=== PATIENT | female | born 1955 | race Caucasian/White ===

== ENCOUNTER → 2018-05-10 07:46 | Outpatient (CLI) | payer SELFPAY ==
--- NOTE | 2018-05-10 | DI.US.S_ITS ---
PROCEDURE: US ABDOMEN COMPLETE INDICATIONS: Right upper quadrant pain TECHNIQUE: Real-time scanning was performed of the abdominal and retroperitoneal organs, with image documentation. COMPARISON: None. FINDINGS: Liver: Liver is normal in size and homogeneous in echotexture. Gallbladder: There is no gallstone. No gallbladder wall thickening or pericholecystic fluid. No sonographic Friend's sign. Biliary ducts: Intrahepatic bile ducts are non-dilated. Extrahepatic bile duct caliber measures 4 mm. Normal is 6-7 mm or less in diameter, or 10 mm or less post-cholecystectomy. Pancreas: Visualized portions of the pancreas are sonographically normal. Spleen: Spleen is normal in size and homogeneous in echotexture. Kidneys: Kidneys are normal in size and echotexture. Right kidney measures 9.2 cm long; left kidney measures 11 cm long. There is mild prominence of left renal collecting system which may represent mild left-sided hydronephrosis. No shadowing renal stone is seen. No right sided hydronephrosis. No solid masses. Aorta: Visualized aorta is normal in caliber at less than 3 cm. Iliacs: Proximal common iliac arteries are normal in caliber at less than 2.5 cm. IVC: Intrahepatic inferior vena cava is patent. Miscellaneous: No free abdominal fluid. IMPRESSION: 1. Suggestion of mild left-sided hydronephrosis although patient reported no symptoms of left flank pain. No right-sided hydronephrosis. No gross shadowing renal stone. 2. Rest of exam is unremarkable. Dictated by: Leonid Ashby M.D. on 05/10/2018 at 11:54 Approved by: Leonid Ashby M.D. on 05/10/2018 at 11:57
== END ==
PROVIDERS: Visit Provider Naturopath
DX: R10.11 Right upper quadrant pain (principal)
CPT/HCPCS: 76700

== ENCOUNTER → 2018-10-20 14:32 | Outpatient (CLI) | payer MEDICARE, OTHER, SELFPAY ==
--- NOTE | 2018-10-20 14:38 | DI.MG.S_ITS ---
BILATERAL DIGITAL SCREENING MAMMOGRAM 3D/2D WITH CAD: 10/20/2018 CLINICAL: Routine screening. Family history of breast cancer. Comparison is made to exams dated: [facility]/01[facility]2010 [facility] and 06/01/2010 mammogram - [facility]. The tissue of both breasts is heterogeneously dense. This may lower the sensitivity of mammography. Current study was also evaluated with a Computer Aided Detection (CAD) system. There are benign calcifications in both breasts. No significant masses, calcifications, or other findings are seen in either breast. There has been no significant interval change. IMPRESSION: There is no mammographic evidence of malignancy. A 1 year screening mammogram is recommended. This exam was interpreted at Station ID: [id number]. NOTE: For mammograms, a report in lay terms will be sent to the patient. Approximately 15% of breast malignancies will not be visualized mammographically. In the management of a palpable breast mass, a negative mammogram must not discourage biopsy of a clinically suspicious lesion. Electronically Signed By: Moses bauman/pancho:10/27/2018 08:10:34 letter sent: Normal Exam ACR BI-RADS Category 2: Benign Finding(s) [id number]
== END ==
PROVIDERS: Family Provider Family Medicine; PCP Family Medicine; Visit Provider Family Medicine
DX: Z12.31 Encounter for screening mammogram for malignant neoplasm of breast (principal); Z80.3 Family history of malignant neoplasm of breast; M85.88 Other specified disorders of bone density and structure, other site; Z78.0 Asymptomatic menopausal state; Z82.62 Family history of osteoporosis; Z87.891 Personal history of nicotine dependence
CPT/HCPCS: 77063; 77067; 77080

== ENCOUNTER → 2018-11-27 07:30 | Outpatient (CLI) | payer MEDICARE, OTHER, SELFPAY ==
--- NOTE | 2018-11-27 | DI.MRI.S_ITS ---
PROCEDURE: MR BRAIN (IAC) WWO CON INDICATIONS: DIZZINESS TECHNIQUE: Noncontrast sagittal T1 spin echo, axial FLAIR, axial gradient echo, axial diffusion and ADC through the brain. Axial thin-slice 3D CISS, coronal TruFISP, axial T1 spin echo with fat saturation through the internal auditory canals. After the administration of contrast, thin slice axial and coronal T1 spin echo with fat saturation through the internal auditory canals, and axial T1 spin echo with fat saturation through the brain. COMPARISON: None. FINDINGS: Image quality: Excellent. Cerebellopontine angles: No cerebellopontine angle masses. Inner ear structures appear normally formed. No suspicious enhancement in the internal auditory canal or along the course of the 7th cranial nerve. CSF spaces: Ventricles are normal in size and shape. No extra-axial fluid collections. Basal cisterns are patent. Brain: No intracranial bleeds or mass effects. Faustin-white matter interface is intact. No abnormal intracranial enhancement. Mild brain parenchymal volume loss and chronic small vessel ischemic change can be seen. Diffusion weighted images demonstrate no acute ischemic insults. Brainstem appears normal. Normal intravascular flow voids are present. Skull and face: Calvarial marrow signal is normal. Orbits appear normal. Sinuses: Sinuses and mastoids are clear. IMPRESSION: No significant abnormality is seen. Specifically, no masses or abnormal enhancement are seen within the cerebellopontine angle cisterns or within the internal auditory canals. No findings of acute or subacute infarction can be seen. Dictated by: Nadeem Olmstead M.D. on 11/27/2018 at 8:58 Approved by: Nadeem Olmstead M.D. on 11/27/2018 at 9:00
== END ==
PROVIDERS: PCP Family Medicine; Visit Provider Otolaryngology
DX: R42 Dizziness and giddiness (principal)
CPT/HCPCS: 70553

== ENCOUNTER → 2019-01-30 12:55 | Outpatient (CLI) | payer MEDICARE, OTHER, SELFPAY ==
--- NOTE | 2019-01-30 12:58 | DI.RAD.S_ITS ---
PROCEDURE: XR HIP W PEL IF DONE RT 2V INDICATIONS: Right hip pain TECHNIQUE: AP pelvis with lateral view(s) of the right hip(s). COMPARISON: Outside Facility, RG, XR PELVIS WITH BILATERAL HIPS, 04/17/2014, 15:36. FINDINGS: Bones: No fractures or dislocations. Pelvic ring appears intact. No suspicious bony lesions. There is mild symmetric hip and sacroiliac joint degeneration bilaterally. Soft tissues: The visualized bowel gas pattern is normal. No suspicious soft tissue calcifications. 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 Dictated by: Shari Hayes M.D. on 01/30/2019 at 17:03 Approved by: Shari Hayes M.D. on 01/30/2019 at 17:08
== END ==
PROVIDERS: PCP Family Medicine; Visit Provider Hospitalist
DX: M16.0 Bilateral primary osteoarthritis of hip (principal); M47.898 Other spondylosis, sacral and sacrococcygeal region
CPT/HCPCS: 73502

== ENCOUNTER → 2019-02-26 15:06 | Outpatient (CLI) | payer MEDICARE, OTHER, SELFPAY ==
--- NOTE | 2019-02-26 15:39 | DI.RAD.S_ITS ---
PROCEDURE: XR ACUTE ABDOMEN SERIES INDICATIONS: abd pain, diarrhea, nausea, bloating and fatigue TECHNIQUE: One view chest and two views of the abdomen were acquired. COMPARISON: None. FINDINGS: Surgical changes and devices: None. Chest: Lungs are clear. No pneumothorax is evident. There is aortic atherosclerosis. Heart size is normal. No pleural effusions. No pneumoperitoneum. Abdomen: No air-filled distended small bowel loops are identified demonstrating air-fluid levels. Moderate residual stool seen within the proximal colon. No suspicious calcifications. Visualized solid organ contours appear normal. No free air is evident. Bones: No suspicious bony lesions. Levoconvex curvature of the lumbar spine is evident with moderate multilevel degenerative changes of the lower lumbar spine. There are mild degenerative changes of the sacral iliac joints. The bone mineralization is decreased. IMPRESSION: 1. No bowel obstruction. 2. No acute cardiopulmonary process is evident Dictated by: Arias Fritz M.D. on 02/26/2019 at 15:15 Approved by: Arias Fritz M.D. on 02/26/2019 at 15:16
== END ==
PROVIDERS: PCP Family Medicine; Visit Provider Nurse Practitioner
DX: R10.9 Unspecified abdominal pain (principal); R19.7 Diarrhea, unspecified; R11.0 Nausea; R14.0 Abdominal distension (gaseous); R53.83 Other fatigue
CPT/HCPCS: 74022

== ENCOUNTER → 2019-02-27 13:51 | Outpatient (CLI) | payer MEDICARE, OTHER, SELFPAY ==
--- NOTE | 2019-02-27 13:54 | DI.CT.S_ITS ---
PROCEDURE: CT ABDOMEN PELVIS W CON INDICATIONS: r/o diverticulitis TECHNIQUE: After the administration of intravenous contrast, 5 mm thick sections acquired from the diaphragm to the symphysis. 5 mm coronal and sagittal reformats were acquired. For radiation dose reduction, the following was used: automated exposure control, adjustment of mA and/or kV according to patient size. COMPARISON: [facility], CR, XR ACUTE ABDOMEN SERIES, 02/26/2019, 15:50. FINDINGS: Image quality: Excellent. ABDOMEN: Lung bases: Lung bases are clear. Heart size is normal. Solid organs: Liver is normal in size and enhancement. Gallbladder is not enlarged or inflamed. Biliary system is non dilated. Pancreas enhances normally. Spleen is normal in size and enhancement. No adrenal nodules. Kidneys demonstrate normal size and enhancement, without hydronephrosis. Parapelvic cysts are evident on the left. Peritoneum and bowel: The stomach is unremarkable with the exception of prominence of the wall near the antrum of the stomach. The small bowel loops are nondilated. Mild to moderate residual stool is seen throughout the colon. Distal colonic diverticulosis is evident without surrounding inflammation to suggest diverticulitis. No free fluid or loculated fluid collection is evident. No pneumoperitoneum. Nodes and vessels: No retroperitoneal or mesenteric adenopathy by size criteria. Aorta and inferior vena cava are normal in size. There is aortic atherosclerosis. Bones: No acute fracture suspicious osseous lesion is evident. The bone mineralization appears decreased. PELVIS: Genitourinary: Bladder wall thickness is normal. The uterus and ovaries are small in size. Miscellaneous: No inguinal hernias or adenopathy. Bones: No suspicious bony lesions. No acute pelvic fractures are identified. IMPRESSION: 1. No acute abnormality of the abdomen or pelvis. 2. Nonspecific prominence of the antrum of the stomach. Clinical correlation to exclude focal gastritis is recommended. 3. No bowel obstruction. There may be mild constipation. 4. Distal colonic diverticulosis. No diverticulitis. Dictated by: Arias Fritz M.D. on 02/27/2019 at 15:16 Approved by: Arias Fritz M.D. on 02/27/2019 at 15:21
[2019-02-27 14:58] LABS: BUN Creatinine Ratio 24.4 (6-22); Blood Urea Nitrogen 22 mg/dL (7-17); Estimated Glomerular Filt Rate > 60.0 mL/min (>60)
== END ==
PROVIDERS: PCP Family Medicine; Visit Provider Nurse Practitioner
DX: R10.9 Unspecified abdominal pain (principal)
CPT/HCPCS: 36415; 74177; 82565; 84520; Q9967

== ENCOUNTER → 2019-03-20 13:00 | Oncology outpatient (ONC) | payer MEDICARE, OTHER, SELFPAY ==
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
--- NOTE | 2019-03-27 10:47 | MSW.VISIT ---
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 Narrative: Alda Madrigal is a 63 year old female here to continue counseling as she mateo with her 's recent cancer diagnosis and impending treatment. She presents as more tired and fatigued than she had our last visit. She feels that the waiting is wearing on both her and her , as he is still completing staging testing and doesn't yet know what his cancer treatment will be, or if he will only require surgery. Continued the focus of self care, how to take time away from their current routine in order to engage in meaningful activities for herself, even if it's just going out for a walk. She feels that her anxiety has worsened, and than this just has to be over with, re: the uncertainty of what lies ahead. Due to multiple health issues of her own, pt has many limitations re: activities and therapeutic modalities that could help her, she is not open to massage or accupuncture, and doesn't want to explore diet or possibly meeting with a life teacher to address her chronic fatigue. FOOT AND ANKLE SURGEON continued to support her goals of being primarily future focused, and suggested utilizing deep breathing and quiet meditative time as tools for calming and centering during times of anxiousness. CC: DEJAN Perry Patient reports pain?: No - Code Status Resuscitation Status: Full Code - Medical, Surgical, Family History Medical History: Medical History (Updated 03/15/19 @ 13:47 by DEJAN Perry) Anxiety Carpal tunnel syndrome Onset Date: ~1995 Cervical spine disease Onset Date: ~2010 Chronic gastritis Colon polyps Onset Date: ~2010 [place] of foot Dyspareunia Esophagitis Onset Date: ~2010 Foot pain Headache Hemorrhoid Irregular menstrual cycle Osteoarthritis Osteopenia Onset Date: ~2013 Painful menstrual periods Post traumatic stress disorder (PTSD) Shoulder pain Onset Date: ~2009 Sleep apnea Onset Date: ~2014 Abnormal Pap smear of cervix Onset Date: ~1977 BPPV (benign paroxysmal positional vertigo) Onset Date: ~10/2018 Broken toe Onset Date: ~2011 Chicken pox Coagulation disorder Onset Date: ~1978 Eczema Onset Date: ~2017 Human papilloma virus Onset Date: ~1995 Measles Mumps Pneumonia Vertigo Onset Date: ~01/2018 Depression Surgical History: Surgical History (Updated 11/15/18 @ 11:38 by Roya Wilkins MA) Anesthesia History of cataract removal with insertion of prosthetic lens Onset Date: ~2016 History of section Onset Date: ~1978 History of laparotomy Onset Date: ~1975 History of tonsillectomy and adenoidectomy Onset Date: ~1959 Thyroglossal cyst Onset Date: ~1958 Family History: Family History (Updated 11/15/18 @ 11:52 by Roya Wilkins MA) Father Cancer Diabetes mellitus Heart disease Hypertension Alcoholic Mother Hypertension Alcoholic COPD (chronic obstructive pulmonary disease) Brother Heart disease Hypertension Stroke Gastritis Sleep apnea Sister Breast cancer Grandfather Hypertension Alcoholic Gastritis Grandfather No problems noted. Daughter History of thyroidectomy Grandmother Medical history unknown Grandmother Cerebral hemorrhage - Social History housing: house household members: spouse service: No current occupational status: retired education level: college - Psychological Status Stressors: Psychosocial, Health Depression-related: Depressed mood: Present, Loss of interest: Present, Fatigue: Present, Concentration/focus: Present, Insomnia: Present, Hypersomnia: Absent, Appetite changes: Absent, Feel guilt/worthlesness: Absent, Suicidal ideation: Absent, Psychomotor agitation: Absent, Psychomotor retardation: Absent - Mental Status Exam Orientation:: Time, Place and Person Appearance:: Well-groomed Speech:: Normal rate/volume/magdalena Movement:: Agitated Mood:: Anxious Affect:: Anxious Thought Process:: Goal-directed Thought Content:: Normal - Assessment/Goals/Plan Assessment: Pt and her have their next oncology appointments at the end of February and on April 03, both of which will determine the next steps in pt's 's course of cancer treatment. FOOT AND ANKLE SURGEON encouraged tools for caregiver self-care and coping, as well as validation for the hard work of providing care for her , and the frustrations of waiting for treatment to begin. Pt understands that this heightened level of anxiousness is situational, and will decrease as they move forward in pt's cancer journey. Goals: 1. Continue to explore he angeln communication and coping style in managing the high stress of her 's cancer diagnosis and their future as a couple. 2. Learn and utilize CBT related skills in order to improve her own expectations and narrative in her own life. Begin to set goals for how she see's her life in the next 5-years, including options. 3. Begin to utilize her own ingerent strengths of art, writing, creativity and spirituality in order to improve quality of life. Plan: Meet again for counseling after pt's March oncology appt. for ongoing support and skills training in accomplishing goals and improving understanding her role as a cancer caregiver. Home Medications: Home Medications Medication Instructions Recorded Confirmed Type potassium 99 mg tablet 99 mg PO DAILY 01/30/19 01/30/19 History see scans from 02/22/19 #1 ea 02/22/19 02/22/19 Rx acetaminophen 500 mg capsule 500 mg PO Q6H PRN 02/26/19 02/26/19 History omeprazole 20 mg capsule,delayed 20 mg PO DAILY #30 cap 03/02/19 Rx release Allergies/Adverse Reactions: Allergies Allergy/AdvReac Type Severity Reaction Status Date / Time adhesive Allergy Severe Took layer Verified 02/26/19 14:40 of skin off
== END ==
PROVIDERS: PCP Family Medicine; Visit Provider Social Worker Clinical
DX: F41.1 Generalized anxiety disorder (principal)
CPT/HCPCS: 90837

== ENCOUNTER → 2019-03-28 11:51 | Outpatient (CLI) | payer MEDICARE, OTHER, SELFPAY | PROVIDERS: PCP Family Medicine; Visit Provider Family Medicine | DX: L29.0 Pruritus ani (principal) | CPT/HCPCS: 87177 ==

== ENCOUNTER → 2019-03-29 16:02 | Outpatient (CLI) | payer MEDICARE, OTHER, SELFPAY | PROVIDERS: PCP Family Medicine; Visit Provider Family Medicine | DX: L29.0 Pruritus ani (principal) | CPT/HCPCS: 87177 ==

== ENCOUNTER 2020-07-08 13:45 | Outpatient (RCR) | payer MEDICARE, OTHER, SELFPAY ==
--- NOTE | 2020-06-17 14:34 | PT.OPPOC ---
Physical, Occupational & Speech Therapy At [facility] Current Diagnoses Other forms of scoliosis, thoracolumbar region (06/17/20) Sacrococcygeal disorders, not elsewhere classified (06/17/20) Abnormal posture (06/17/20) Weakness (06/17/20) Strain of muscle, fascia and tendon at neck level, initial encounter (06/17/20) Visit Care Team Role Provider Type Brendan Cesar Attending Provider Non-Staff Primary Care Provider Referring Provider Specialty: Family Practice Address: [address] [place] [address], [id number] Email: Plan Of Care PT-OP-T Assessment and Plan Start: 06/17/20 12:52 Freq: Status: Active Protocol: Document 06/17/20 14:34 SAK (Rec: 06/18/20 10:30 SAK [id number]) Physical Therapy Assessment Evaluation Complexity Number of Personal Factors/Comorbidities 3 or More Number of Body Systems Impaired 4 or More Clinical Presentation at Evaluation Evolving Other Concerns Barriers to Rehabilitation chronicity high stress level prior poor respnse to PT Goals Three Impairment postural dysfunction Short Term Goal (STG) Instruct in neutral postural alignment, instruct in gentle postural correction exercises STG Duration 08/04/20 Jail Goal (LTG) Patient to demonstrate good understanding of postural principles, be independent in postural correction exercises, and be able to self-correct consistently LTG Duration 09/18/19 Two Impairment unable to tolerate exercises Short Term Goal (STG) Work with patient to evelop well-tolerated self-care program consisting of relaxation techniques, breathing exercises, and gentle ROM and strengthening exercises for patient STG Duration 08/04/20 Jail Goal (LTG) Patient to be independent and compliant with HEP for long- term fitness and pain management LTG Duration 09/16/20 One Impairment intolerance to activity, unable to tolerate usual activities Jail Goal (LTG) Patient to report ability to resume light household tasks, ADL's, and 10-15 min walks without an increase in pain LTG Duration 09/16/20 Assessment Summary Assessment Patient presents with function -limiting chronic pain throughout her body especially neck, thoracic, and lumbar spine, left shoulder, and bilateral feet. States her pain has worsened recently for unknown reason. Patient acknowledges emotional component to her pain and also reports her stress level is william high. She has prior poor response to most PT, but states she responds well to OMT and visceral mobilization. She requests a gentle PT approach due to her prior bad experiences. Majority of today's session was spent on patient history, patient has low tolerance for objective testing. She should benefit from PT for pain reduction techniques to include gentle soft tissue mobilization, modalities, breathing and stress reduction techniques and education, neuroscience pain education, and gentle therapeutic exercise and HEP instruction. Physical Therapy Plan Frequency and Duration Frequency of Treatment 2x/Week Duration of Treatment 12 weeks Plan of Care Start Date 06/18/20 Plan of Care End Date 09/16/20 Therapeutic Interventions Therapeutic Interventions Balance Training,Home Exercise Program,Manual Therapy, Neuromuscular Re-education, Patient/Caregiver Education, Self-Care/Home Management,Soft Tissue Mobilization,Taping, Therapeutic Activities, Therapeutic Exercises Modalities Electric Stimulation,Hot Packs ,Traction- Mechanical, Ultrasound Next Visit Focus/Plan Next Note Type Treatment Note Plan of Care Dates Plan of Care Start Date 06/18/20 Plan of Care End Date 09/16/20 Electronically Signed by: Brooke Cheng, PT 06/18/20 [id number] Please Sign and Return: I have reviewed this Plan of Care and certify that the skilled therapy services above are required to meet the patient?s needs. Physician Signature Date Printed Name and Credentials Clinical Instructor Signature Printed Name and Credentials
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
--- NOTE | 2020-07-14 14:45 | PT-OP ANOTE ---
Patient cancelled due to Covid19 exposure, no symptoms, self-quarantining.
--- NOTE | 2020-07-29 08:15 | PT-OP ANOTE ---
cancelled until after the first of the year due to Covid19 concerns.
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
== END 2021-01-02 09:06 | disposition home or self-care (01) ==
LOC: PHYS 13:45
PROVIDERS: PCP Neuromusculoskeletal Medicine & OMM; Referring Provider Neuromusculoskeletal Medicine & OMM; Visit Provider Neuromusculoskeletal Medicine & OMM
DX: S16.1XXA Strain of muscle, fascia and tendon at neck level, initial encounter (principal); M41.85 Other forms of scoliosis, thoracolumbar region; M53.3 Sacrococcygeal disorders, not elsewhere classified; R29.3 Abnormal posture; R53.1 Weakness
CPT/HCPCS: 97010; 97110; 97140; 97163; 97535

== ENCOUNTER → 2020-10-29 07:48 | Outpatient (CLI) | payer MEDICARE, OTHER, SELFPAY ==
[2020-10-29 09:16] LABS: Add Manual Diff / Slide Review NO; Basophils Absolute Auto 0 /uL (0-100); Basophils Percent Auto 0.4 % (0-2); Eosinophils Absolute Auto 0 /uL (0-450); Eosinophils Percent Auto 1.1 % (2-4); Hematocrit 37.9 % (36-46); Hemoglobin 12.5 g/dL (12.0-16.0); Lymphocytes Absolute Auto 1000 /uL (1100-4500); Lymphocytes Percent Auto 24.2 % (25-40); Mean Corpuscular HGB Conc 32.9 % (30-36); Mean Corpuscular Hemoglobin 31.9 PG (26-34); Mean Corpuscular Volume 96.7 fL (80-100); Monocytes Absolute Auto 300 /uL (0-900); Neutrophils Absolute Auto 2700 /uL (1500-7000); Neutrophils Percent Auto 67.3 % (50-75); Platelet Count 197 X10^3/uL (150-400); Red Blood Cell Count 3.92 X10^6/uL (4.0-5.2); Red Cell Distribution Width 12.8 % (11.6-14.8)
[2020-10-29 09:46] LABS: Alanine Aminotransferase 31 IU/L (<35); Albumin 4.3 g/dL (3.5-5.0); Albumin Globulin Ratio 1.8 (1.0-2.8); Alkaline Phosphatase 55 U/L (38-126); Aspartate Aminotransferase 38 IU/L (14-36); BUN Creatinine Ratio 38.2 (6-22); Bilirubin Total 0.5 mg/dL (0.2-1.3); Blood Urea Nitrogen 26 mg/dL (7-17); Calcium 9.3 mg/dL (8.4-10.2); Carbon Dioxide 27 mmol/L (22-32); Chloride 101 mmol/L (98-107); Estimated Glomerular Filt Rate > 60.0 mL/min (>60); Globulin 2.4 g/dL (1.7-4.1); Glucose 82 mg/dL (80-110); HEMOLYSIS < 15 (0-50); Potassium 4.1 mmol/L (3.4-5.1); Sodium 133 mmol/L (137-145); Total Protein 6.7 g/dL (6.3-8.2)
[2020-10-29 09:47] LABS: HEMOLYSIS < 15 (0-50); Iron 73 ug/dL (37-170)
[2020-10-29 09:57] LABS: Percent Iron Saturation 26 % (15-50); Total Iron Binding Capacity 284 ug/dL (265-497); Transferrin 212 mg/dL (206-381)
[2020-10-29 10:22] LABS: Ferritin 391 ng/mL (11-264)
[2020-10-31 14:01] LABS: SARS CoV19 IgG Negative
== END ==
PROVIDERS: PCP Neuromusculoskeletal Medicine & OMM; Referring Provider Student in an Organized Health Care Education/Training Program; Visit Provider Student in an Organized Health Care Education/Training Program
DX: Z86.010 Personal history of colon polyps (principal); R42 Dizziness and giddiness; R11.0 Nausea; Z87.19 Personal history of other diseases of the digestive system; R12 Heartburn; R10.9 Unspecified abdominal pain; R53.1 Weakness; I87.2 Venous insufficiency (chronic) (peripheral); R79.89 Other specified abnormal findings of blood chemistry; R53.83 Other fatigue
CPT/HCPCS: 36415; 80053; 82728; 83540; 83550; 85025; 86769

== ENCOUNTER → 2020-11-24 14:23 | Outpatient (CLI) | payer MEDICARE, OTHER, SELFPAY ==
[2020-11-24 16:10] LABS: COVID19 -Nasal RAPID Negative (Negative)
== END ==
PROVIDERS: PCP Neuromusculoskeletal Medicine & OMM; Visit Provider Physician Assistant
DX: Z20.822 Contact with and (suspected) exposure to COVID-19 (principal)
CPT/HCPCS: 87635; C9803

== ENCOUNTER 2020-11-26 11:42 | Day surgery (SDC) | payer MEDICARE, OTHER, SELFPAY ==
--- NOTE | 2020-11-26 | PATH_ITS ---
[facility] Accession Number: [id number] . 01 Material submitted: . PART A: stomach - STOMACH BIOPSY PART B: duodenum - DUODENUM BIOPSY PART C: gastrointestinal site - GASTRIC POLYP . 01 Clinical history: . B: R/O CILIAC . 02 Diagnosis: A. Stomach Biopsy: Portions of gastric antral mucosa with mild chronic inflammation. Negative for Helicobacter organisms by immunohistochemistry. Negative for intestinal metaplasia. Negative for dysplasia and malignancy. . B. Duodenum, Biopsy: Mild, active duodenitis, non-specific. Negative for granulomas, features of sprue, dysplasia, or malignancy. . C. Gastric Polyp: Fundic gland polyp. No evidence of Helicobacter organisms on H/E stain. Negative for intestinal metaplasia. Negative for dysplasia and malignancy. [facility] 12/02/2020 1321 Local . 02 Electronically signed: . Essie Henning MD, Pathologist NPI- [id number] . 01 Gross description: . Part A: STOMACH BIOPSY: Received in formalin are 2 fragment(s) of grimaldo, soft tissue measuring 0.1 x 0.1 x 0.1 cm to 0.3 x 0.2 x 0.2 cm submitted entirely in 1 cassette(s) Part B: DUODENUM BIOPSY: Received in formalin are 2 fragment(s) of grimaldo, soft tissue measuring 0.1 x 0.1 x 0.1 cm to 0.2 x 0.2 x 0.2 cm submitted entirely in 1 cassette(s) Part C: GASTRIC POLYP: Received in formalin is 1 fragment(s) of grimaldo, soft tissue measuring 0.2 x 0.2 x 0.2 cm submitted entirely in 1 cassette(s) /LINDA 11/27/2020 2319 Local . 02 Microscopic: . An immunohistochemical stain was performed to evaluate for Helicobacter organisms and is negative. The control stain showed appropriate reactivity. . * This test was developed and its performance characteristics determined by [facility]. It has not been cleared or approved by the U.S. Food and Drug Administration. The FDA has determined that such clearance or approval is not necessary. This test is used for clinical purposes. It should not be regarded as investigational or for research. . 02 Pathologist provided ICD-10: R11.0, R12, R10.9 . 02 CPT . 797921, 779734, [id number], [id number] Performed at: 01 [facility] [address] [place] [address], [place], [place] [id number] MD Christophe Lezama MD Phone: [phone] Performed at: 02 [facility] [address] [place] [id number] MD Megan Medina MD Phone: [phone]
[2020-11-26 12:39] VITALS: BP 92/55; PULSE 65; RESP 12; TEMP 37.3; O2SAT 98; BMI 21.9
[2020-11-26 13:01] VITALS: BMI 21.9
[2020-11-26] MEDS: SODIUM CHLORIDE 0.9% 1,000 ML 100 ML IV (13:03)
--- NOTE | 2020-11-26 13:19 | PM.HP.1 ---
History of Present Illness History of Present Illness Date Patient Seen: 11/26/20 Chief complaint: EGD Narrative: Nausea and abdominal pain Patient History Medical History (Updated 10/02/20 @ 08:48 by Jibbigo La) Abnormal Pap smear of cervix (~1977) Anxiety BPPV (benign paroxysmal positional vertigo) (~10/2018) Broken toe (~2011) Carpal tunnel syndrome (~1995) Cervical spine disease (~2010) Chicken pox Chronic gastritis Coagulation disorder (~1978) Colon polyps (~2010) [place] of foot Depression Dyspareunia Eczema (~2017) Esophagitis (~2010) Foot pain Headache Hemorrhoid Human papilloma virus (~1995) Irregular menstrual cycle Measles Mumps Osteoarthritis Osteopenia (~2013) Painful menstrual periods Pneumonia Post traumatic stress disorder (PTSD) Shoulder pain (~2009) Sleep apnea (~2014) Vertigo (~01/2018) Surgical History Anesthesia History of cataract removal with insertion of prosthetic lens (~2016) History of section (~1978) History of laparotomy (~1975) History of tonsillectomy and adenoidectomy (~1959) Thyroglossal cyst (~1958) Family & Social History Family History Father Cancer Diabetes mellitus Heart disease Hypertension Alcoholic Mother Hypertension Alcoholic COPD (chronic obstructive pulmonary disease) Brother Heart disease Hypertension Stroke Gastritis Sleep apnea Sister Breast cancer Grandfather Hypertension Alcoholic Gastritis Grandfather No problems noted. Daughter History of thyroidectomy Grandmother Medical history unknown Grandmother Cerebral hemorrhage Social History: household members spouse lives independently Yes Tobacco & Substance use: Smoking Status Former smoker alcohol intake never Substance Use Type does not use Meds Home Medications and Allergies Home Medications Medication Instructions Recorded Confirmed Type see scans from 09/07/19 #1 ea 09/07/19 09/07/19 Rx acetaminophen 1,000 mg PO DAILY PRN 11/26/20 11/26/20 History baclofen 10 mg PO PRN PRN 11/26/20 11/26/20 History Allergies Allergy/AdvReac Type Severity Reaction Status Date / Time adhesive Allergy Severe Took layer Verified 11/26/20 12:30 of skin off Exam Vital Signs (past 8 hours): - 11/26/20 12:39 Temperature 99.2 F Pulse Rate 65 Respiratory Rate 12 Blood Pressure 92/55 L Pulse Oximetry 98 Oxygen Delivery Method Room Air Narrative Exam Narrative: Oropharynx free of lesions Chest clear to auscultation percussion Cardiac exam reveals no S3 or murmur Assessment & Plan Assessment & Plan narrative: Nausea and abdominal pain. Poorly responsive to medication. Rule out gastritis and duodenitis. Risks, benefits, alternatives have been explained.
--- NOTE | 2020-11-26 13:20 | PM.OP.ENDO ---
Operative Date/Time/Diagnoses Date of procedure: 11/26/20 Pre-op diagnosis: See indication and findings Procedure & Clinicians Study performed: EGD Same procedure as scheduled: Yes Indications: Nausea and abdominal pain poorly responsive to medications Surgeon: Isac Nevarez Procedure Notes Procedure in detail: After informed consent was obtained patient placed in left lateral decubitus position. The video upper scope placed into the oropharynx and with the patient's help swallowed into the esophagus. The esophagus stomach and duodenum were carefully examined. On withdrawal, retroflexed view the GE junction was performed. The scope was removed. The patient tolerated procedure well. Blood loss none Complications none Sedation Total sedation time 10 minutes Fentanyl 100 micro g Versed 3 mg IV titration Findings 1. Normal esophagus with normal squamocolumnar junction. No evidence for peptic esophagitis. 2. Distal antral and pre-pyloric erosions with some hematin flecks present. Biopsies taken to rule out Helicobacter 3. Normal duodenal bulb and sweep biopsies taken to rule out celiac Patient will follow up through Dr. dolan for biopsy results and further workup if necessary.
[2020-11-26] MEDS: fentaNYL 250 MCG/5 ML INJ IV (13:59)
[2020-11-26] MEDS: MIDAZOLAM 5 MG/5 ML VIAL IV (14:06)
[2020-11-26 14:14] VITALS: BP 99/44; PULSE 58; RESP 8; TEMP 36.6; O2SAT 94
[2020-11-26 14:19] VITALS: BP 88/42; PULSE 58; RESP 10; O2SAT 95
[2020-11-26 14:24] VITALS: BP 96/42; PULSE 59; RESP 9; O2SAT 96
[2020-11-26 14:36] VITALS: BP 97/47; PULSE 60; RESP 13; TEMP 37; O2SAT 96
[2020-11-26 14:51] VITALS: BP 98/77; PULSE 67; RESP 13; TEMP 36.2; O2SAT 98
== END 2020-11-26 14:53 | disposition home or self-care (01) ==
PROVIDERS: PCP Neuromusculoskeletal Medicine & OMM; Referring Provider Neuromusculoskeletal Medicine & OMM; Visit Provider Internal Medicine Gastroenterology
PROC: 0DJ08ZZ Inspection of Upper Intestinal Tract, Via Natural or Artificial Opening Endoscopic (ICD-10-PCS; CPT 43235; principal; 2020-11-26 14:30)
DX: K29.50 Unspecified chronic gastritis without bleeding (principal); K29.80 Duodenitis without bleeding; K31.7 Polyp of stomach and duodenum
CPT/HCPCS: 43239; J2250; J3010

== ENCOUNTER → 2020-11-28 13:31 | Outpatient (CLI) | payer MEDICARE, OTHER, SELFPAY ==
[2020-11-28] MEDS: COVID-19 VACC #1, MRNA(MOD) 100 MCG/0.5 ML VIAL IM (13:41)
== END ==
PROVIDERS: PCP Neuromusculoskeletal Medicine & OMM; Visit Provider Internal Medicine
DX: Z23 Encounter for immunization (principal)
CPT/HCPCS: 0011A; 91301

== ENCOUNTER → 2020-12-26 14:52 | Outpatient (CLI) | payer MEDICARE, OTHER, SELFPAY ==
--- OUTSIDE RECORDS SUMMARY | 2020-12-26 08:34 | XMS_ITS | Referral Summary ---
:1955 Author Organization [facility] Address [address] [place] [address] Care Team Providers Name Role Phone Brendan Cesar DO Primary Care Provider Reason for Referral Consultation (Routine) Status Reason Specialty Diagnoses / Referred By Referred To Procedures Contact Contact Authorized Specialty Physical Diagnoses Dizziness and giddiness Hola Rogers Services Therapy MD Brit [address] [phone] Phone: Electronically signed by Hola Rogers MD at Reason for Visit Reason Onset Date Comments Vestibular rehab order 12/11/2020 Encounter Details Date Type Department Care Team Description 12/11/2020 Telephone [facility] Hola Rogers Vestibular rehab order [facility] [place] [id number] [place] [address] [address] [address] [place], [place] [phone] Allergies Active Allergy Reactions Severity Noted Date Comments Adhesive Tape-Silicones 12/19/2018 documented as of this encounter (statuses as of 12/23/2020) Medications Medication Sig Dispensed Refills Start End Status Date Date acetaminophen (TYLENOL) Take 500 mg by mouth 0 Active 500 mg tablet every 6 hours as needed carboxymethylcellulose-g carboxymethylcellulose 0 //2 Active lycern 0.5-0.9 % drops sodium 0.5 % eye drops 013 in a dropperette baclofen (LIORESAL) 10 Take 1 tablet (10 mg 20 tablet 0 Active mg tabletIndications: total) by mouth 3 020 Trapezius strain, left, (three) times a day initial encounter carboxymethylcellulose Administer 2 drops into 0 Active (REFRESH PLUS) 0.5 % both eyes daily as dropperette needed for dry eyes valerian root 500 mg Take 500 mg by mouth 0 Active capsule daily as needed 1 capsule PRN (sleep). UNABLE TO FIND Take 400 mg by mouth 0 Active daily Slippery Elm UNABLE TO FIND Topricin Homeopathic 0 Active Cream 1-2 times daily (joint/muscle pain. UNABLE TO FIND 480 mg Fennel. Take 1 0 Active capsule PRN (UGI GAS). UNABLE TO FIND 500 mg Mariposa (lemon 0 Active Osseo) 1 capsule PRN(sleep) UNABLE TO FIND 500 mg Valerian 1 0 Active capsule PRN (sleep) UNABLE TO FIND Shan Seeds: 1 Tbsp 0 Active soaked in 12 oz. Water, daily (for constipation and nutrient content) documented as of this encounter (statuses as of 12/23/2020) Active Problems Problem Noted Date Intermittent abdominal pain 11/05/2020 Osteoarthritis of hands, bilateral 06/06/2020 Right arm numbness 05/09/2020 Idiopathic scoliosis of thoracolumbar region 0 Lumbar scoliosis 04/25/2020 Numbness in feet 04/25/2020 Chronic fatigue 04/25/2020 Hair loss 04/25/2020 Somatic dysfunction of rib 03/30/2020 Muscle strain of left shoulder 03/27/2020 Strain of tendon of left rotator cuff 03/06/2020 Insomnia 03/06/2020 Sacroiliac joint dysfunction of right side 08/13/2019 Somatic dysfunction of upper extremity 07/21/2019 Carpal tunnel syndrome, bilateral 07/16/2019 Leg length discrepancy 07/16/2019 Lower extremity tendon strain, right, initial encounte r 05/25/2019 Somatic dysfunction of abdominal region 05/20/2019 Osteoarthritis of right hip 02/20/2019 Overview: Mild Chronic neck and back pain 02/20/2019 Chronic vertigo 02/20/2019 Somatic dysfunction of head region 02/20/2019 Somatic dysfunction of cervical region 02/20/2019 Somatic dysfunction of thoracic region 02/20/2019 Somatic dysfunction of lumbar region 02/20/2019 Somatic dysfunction of pelvic region 02/20/2019 Somatic dysfunction of sacral region 02/20/2019 Somatic dysfunction of lower extremity 02/20/2019 documented as of this encounter (statuses as of 12/23/2020) Immunizations Name Administration Dates Next Due Moderna SARS-CoV-2 Vaccine 11/28/2020 documented as of this encounter Social History Tobacco Use Types Packs/Day Years Used Date Former Smoker Smokeless Tobacco: Never Used Alcohol Use Drinks/Week oz/Week Comments Never Alcohol Habits Answer Date Recorded How often do you have a drink containing alcohol? Never 03/06/2020 How many drinks containing alcohol do you have on a typical Not asked day when you are drinking? How often do you have six or more drinks on one occasion? No t asked Sex Assigned at Date Recorded Not on file Job Start Date Occupation Industry Not on file Not on file Not on file documented as of this encounter Miscellaneous Notes Telephone Encounter - Valerie Saravia - 12/11/2020 2:22 PM PDTPatient called and stated [facility] received [facility] referral for speech therapy and not for the vestibular therapy. Please send the referral for vestibular therapy to [facility]. Patient would like to be contacted once that has been sent. documented in this encounter Plan of Treatment Upcoming Encounters Date Type Specialty Care Team Description 01/06/2021 Office Visit Otolaryngology Hola Rogers MD [address] [place] [address] [phone] 01/23/2021 Office Visit Family Medicine Brendan Cesar, [address] [id number] 02/09/2021 Office Visit Dermatology Carrillo Sifuentes, DO [address] [place] [address] [place] [phone] Scheduled Referrals Name Type Priority Associated Order Schedule Diagnoses XTRNL Referral to Outpatient Referral Routine Dizziness and 1 Occurrences Physical Therapy giddiness starting until 2 documented as of this encounter Visit Diagnoses Diagnosis Dizziness and giddiness - Primary documented in this encounter Insurance Payer Benefit Plan / Group Subscriber ID Effective Dates Phone Address Type MEDICARE MEDICARE PART A AND B [id number] 2018-Present [facility] SUPP [facility] [id number] 2018-Present SUPP documented as of this encounter Advance Directives Documents on File Type Date Recorded Patient Shape Hand Explanati on Advance Directives and Living Will
[2020-12-26] MEDS: COVID-19 VACC #2, MRNA(MOD) 100 MCG/0.5 ML VIAL IM (15:02)
== END ==
PROVIDERS: Family Provider Neuromusculoskeletal Medicine & OMM; PCP Neuromusculoskeletal Medicine & OMM; Visit Provider Internal Medicine
DX: Z23 Encounter for immunization (principal)
CPT/HCPCS: 0012A; 91301

== ENCOUNTER → 2021-01-06 10:08 | Outpatient (CLI) | payer MEDICARE, OTHER, SELFPAY ==
[2021-01-06 11:54] LABS: Cholesterol 257 mg/dL (140-199); HDL Cholesterol 81 mg/dL (40-60); LDL Cholesterol Calculated 161 mg/dL (<100); Triglycerides 73 mg/dL (35-150)
== END ==
PROVIDERS: Family Provider Neuromusculoskeletal Medicine & OMM; PCP Neuromusculoskeletal Medicine & OMM; Referring Provider Internal Medicine Cardiovascular Disease; Visit Provider Internal Medicine Cardiovascular Disease
DX: I10 Essential (primary) hypertension (principal); R00.2 Palpitations; E78.00 Pure hypercholesterolemia, unspecified
CPT/HCPCS: 36415; 80061

== ENCOUNTER → 2021-02-16 10:00 | Outpatient (CLI) | payer MEDICARE, OTHER, SELFPAY ==
[2021-02-16 11:40] LABS: TSH w/ Reflex to FT4 1.25 uIU/mL (0.47-4.68)
[2021-02-16 12:16] LABS: Folate > 20.0 ng/mL (2.76-20.0); Vitamin B12 388 pg/mL (239-931)
[2021-02-17 06:54] LABS: Dehydroepiandrosterone Sulfate 47.6 ug/dL (20.4-186.6)
[2021-02-18 10:45] LABS: Methylmalonic Acid,Serum 143 nmol/L (0-378); Testosterone,Free 1.5 pg/mL (0.0-4.2)
[2021-02-26 10:00] LABS: Testosterone, Total 14.75
== END ==
PROVIDERS: Family Provider Neuromusculoskeletal Medicine & OMM; PCP Family Medicine; Referring Provider Dermatology; Visit Provider Dermatology
DX: L65.0 Telogen effluvium (principal)
CPT/HCPCS: 36415; 82607; 82627; 82746; 83001; 83002; 83921; 84402; 84403; 84443

== ENCOUNTER → 2021-02-19 15:23 | Outpatient (CLI) | payer MEDICARE, OTHER, SELFPAY ==
--- NOTE | 2021-02-19 15:28 | DI.MG.S_ITS ---
BILATERAL DIGITAL SCREENING MAMMOGRAM 3D/2D WITH CAD: 02/19/2021 CLINICAL: Routine screening. Family history of breast cancer. Comparison is made to exams dated: 10/20/2018 mammogram [facility] and 06/01/2010 mammogram [facility]. The tissue of both breasts is heterogeneously dense. This may lower the sensitivity of mammography. Current study was also evaluated with a Computer Aided Detection (CAD) system. No significant masses, calcifications, or other findings are seen in either breast. There has been no significant interval change. IMPRESSION: NEGATIVE There is no mammographic evidence of malignancy. A 1 year screening mammogram is recommended. This exam was interpreted at Station ID: [id number]. NOTE: For mammograms, a report in lay terms will be sent to the patient. Approximately 15% of breast malignancies will not be visualized mammographically. In the management of a palpable breast mass, a negative mammogram must not discourage biopsy of a clinically suspicious lesion. Electronically Signed By: Rolly caicedo/pancho:02/19/2021 16:06:35 letter sent: Normal Exam ACR BI-RADS Category 1: Negative [id number]
== END ==
PROVIDERS: Family Provider Neuromusculoskeletal Medicine & OMM; PCP Family Medicine; Referring Provider Family Medicine; Visit Provider Family Medicine
DX: Z12.31 Encounter for screening mammogram for malignant neoplasm of breast (principal); Z80.3 Family history of malignant neoplasm of breast
CPT/HCPCS: 77063; 77067

== ENCOUNTER → 2021-04-15 14:34 | Outpatient (CLI) | payer MEDICARE, OTHER, SELFPAY ==
[2021-04-15 16:44] LABS: COVID19 -Nasal RAPID Negative (Negative)
== END ==
PROVIDERS: Family Provider Neuromusculoskeletal Medicine & OMM; PCP Family Medicine; Visit Provider Nurse Practitioner
DX: Z20.822 Contact with and (suspected) exposure to COVID-19 (principal); R05 Cough
CPT/HCPCS: 87635

== ENCOUNTER 2021-04-20 14:30 | Outpatient (RCR) | payer MEDICARE, OTHER, SELFPAY ==
--- NOTE | 2020-12-17 12:17 | ST.OPIE ---
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 Voice Resonance Evaluation Start: 12/17/20 09:52 Freq: Status: Active Protocol: Document 12/16/20 13:30 [facility] (Rec: 12/17/20 10:26 [facility] [id number]) Voice and Resonance Assessment Session Time Visit Start Time 13:30 Visit Stop Time 14:30 Total Visit Minutes 60 Visit Information Plan of Care Dates 12/16/20-03/17/21 Next Note Type Next Note Type Treatment Note Referral Referring Physician Brendan Cesar Reason for Referral hoarseness, swallow difficulties Setting Setting Outpatient Care Patient History General Information Pt is a 65 year old female referred for ST evaluation secondary to voacal hoarseness and swallowing difficulty. She reported that these problems started approximately 3-4 months age. She added that in August 2011, she experienced a significant increase in anxiety related to several life stressors. In addition to her primary complaints, the pt reported that she has also experienced an increase in acid reflux ( she has a prior history of GERD). She also reported a history of GI issues, but was not specific. She underwent endoscopy on 11/26/20 , which she reported resulted in exacerbation of her gastritis. Relative to her voice, the pt reported that her voice is worse in the a.m. and improves during the day. Later on in the session, she stated that her voice will deteriorate around 4 pm. She also reported that she is experiencing a lot of mucous/ phlegm in her throat and that she is losing her singing voice. Pt has been told she needs a C-pap at night, but found that to be difficult to tolerate, so she is not using the C-pap. Consequently, she awakens with a very dry mouth and throat from mouth-breathing during the night. She stated she does become dehydrated frequently. - Laryngeal Performance S/Z Ratio S/Z Ratio 0.4 Functional for Speech Yes Reduced Laryngeal Function Relative to No Respiration CAPE-V Overall Severity 28 Roughness 18 Breathiness 15 Strain 6 Pitch 4 Loudness 2 Normal Resonance? Yes Additional Features Glottal Leal Other Features Observed mild hoarseness Maximum Phonation Time MPT Norms: Women (15-25) Men (25-35) Loudness (50-60 dB); Speaking Rate: Oral Reading of Sentences (190 Words Per Minute); Oral Reading of Paragraphs (160-170 WPM); Speaking Rate in Conversation (150-250 WPM) Maximum Phonation Time 14.1 Maximum Phonation Time Adequate for Speech Jitter/Shimmer Norms: Jitter (Less than or equal to 1.040% - Frequency) Norms: Shimmer (Less than or equal to 3.810% - Amplitude) Jitter 1.05 Shimmer 6.29 Pitch Nesmith Pitch Nesmith Pitch Breaks,Reduced Range Muscle Tension Assessment Muscle Tension Assessment Neck,Shoulders Breath Support Breath Support At Rest Abdominal Breath Support Sustained Phonation Abdominal,Thoracic Breath Support Sustained Phonation WFL Comment Speaks on Room Air Yes Voice Pitch Range Norms: Women (100-300 Hz) Men (70-250 Hz) Fundamental Frequency Norms: Women (Mean: 225 Hz; Range: 155-334 Hz) Men ( Mean: 128 Hz; Range: 85-196 Hz) Voice Phonatory-based Quality Hoarse,Glottal Leal Fundamental Frequency 181.3Hz Paradoxical Vocal Fold Movement No Indications Resonance Nasal Resonance Normal Therapeutic Techniques Therapy Tactics Shifting Tone Focus,Hard Glottal Onset Other Tactics Glottal adduction exercises to increase strength and medial compression of vocal folds for voicing Increase vocal fold ROM for singing increasing vocal range Findings Findings Mild Impairment Voice/Resonance Assessment Assessment Pt presented with mild vocal hoarseness which is likely related to her history and recent increase of GERD. This could also explain the increase in phlegm that she is experiencing. Vocal parameters measured indicated all to be WNL with the exception of the Shimmer value . Shimmer is the variability of the amplitude of the vocal fold vibration during voicing. Increased Shimmer can be directly related to vocal fold inflammation (re:GERD) and possible presbylaryngis/vocal fold bowing (age-related strength reduction) or a combination of the above. Given the pt's age presbylaryngis is likely occurring, albeit mildly. Voice therapy is recommended to increase vocal fold strength as well as flexibility for singing. Reflux precautions were discussed and strongly encouraged to reduce potential inflammation/irritation from GERD/LPR (laryngopharyngeal reflux ). Prognosis Rehabilitation Potential Excellent - Recommendations Treatment Recommended Yes Treatment Frequency/Duration 1 appointment in 1 week followed by additional appointments every 3 weeks a Therapy Recommendations Vocal Adduction exercises Follow anti-reflux diet and environmental strategies Short Term Goals Pt will perform glottal adduction exercises as prescribed 3-5x per day, as reported by pt Pt will follow anti-reflux precautions to reduce / inflammation irritation of vocal folds and phlem/mucous, per pt report Patternmaker Sample Goals Improved vocal quality and singing voice Patient/Caregiver Education Patient/Family Education Described results of evaluation,Patient Understanding,Patient Demonstration
--- NOTE | 2020-12-26 10:57 | ST.OPTN ---
Visit Care Team Role Provider Type Brendan Cesar DO Attending Provider Non-Staff Family Provider Primary Care Provider Referring Provider Address: [address] [place] [address], [place], [address] DE ICER ELEMENT WINDER Treatment Note DE ICER ELEMENT WINDER Clinical Instructor Line Start: 12/17/20 09:52 Freq: Status: Active Protocol: Document 12/26/20 10:56 LNK (Rec: 12/26/20 10:56 LNK [id number]) Clinical Instructor Signature Clinical Instructor Clinical Instructor Yes DE ICER ELEMENT WINDER Treatment Note Start: 12/17/20 09:52 Freq: Status: Active Protocol: Document 12/25/20 17:04 (Rec: 12/25/20 17:08 [id number]) Speech Pathology Treatment Note Session Time Visit Start Time 15:35 Visit Stop Time 16:20 Total Visit Minutes 45 Visit Information Visit Number 2 Plan of Care Dates 12/16/20-03/17/21 Setting Treatment Setting Outpatient Care Visit Type Note Type Treatment Note Next Note Type Next Note Type Treatment Note General Information General Information Pt is a 65 year old female with a history of vocal hoarseness and swallowing difficulty. She reported that these problems started approximately 3-4 months ago. She added that in August 2011 , she experienced a significant increase in anxiety related to several life stressors. In addition to her primary complaints, the pt reported that she has also experienced an increase in acid reflux (she has a prior history of GERD). She also reported a history of GI issues, but was not specific. She underwent endoscopy on , which she reported resulted in exacerbation of her gastritis. Relative to her voice, the pt reported that her voice is worse in the a.m. and improves during the day. Later on in the session, she stated that her voice will deteriorate around 4 pm. She also reported that she is experiencing a lot of mucous/ phlegm in her throat and that she is losing her singing voice. Pt has been told she needs a C-pap at night, but found that to be difficult to tolerate, so she is not using the C-pap. Consequently, she awakens with a very dry mouth and throat from mouth- breathing during the night. She stated she does become dehydrated frequently. Subjective Identification Type Name Identification Reconciled With Medical Record Chief Complaint(s) Swallowing,Voice Additional Areas of Concern GERD Patient Knowledge/Awareness of DE ICER ELEMENT WINDER Role Excellent in Treatment Patient/Caregiver Compliance with Home Good Exercise Program Comment Pt reports adjusting the home practice program significantly as needed. Objective Short Term Goals Pt will perform glottal adduction exercises as prescribed 3-5x per day, as reported by pt. Pt will follow anti-reflux precautions to reduce/ inflammation irritation of vocal folds and phlegm/mucous, per pt report. Window Dresser Goals Improved vocal quality and singing voice. Treatment Activities Pt reported completion of glottal adduction exercises between 3-4 times per day for 3 days, then took a break for 2 days, and resumed with once daily. Education provided on the speech subsystems of respiration, phonation, and sound modifiers. Following clinician demonstration, Alda completed abdominal breathing exercises and incorporated this into vocal adduction exercises. She produced ah, ee, oo, aye with abdominal breathing and hard glottal attack. Recommended home practice with hard glottal attack of vowel sounds, then increasing to vowel initial words. Forward focus of resonance was introduced with humming. Alda was successful with higher pitches, and was instructed to practice lowering her pitch while maintaining a forward focus resonance during /m/. Assessment Patient Response to Treatment Excellent Rehab Potential Excellent Impairments Identified Dysphonia,Vocal Quality,Vocal Hygiene Progress Towards Goals Excellent Progress Assessment of Overall Progress Improving Assessment of Improvement Perceptually, Alda's voice has increased in steadiness and tone when she uses adequate breath support. Recommend continued practice with abdominal breathing during vocal adduction exercises and establishing forward placement of /m/. Reviewed with Patient Progress Being Made,Home Exercise Program Patient/Caregiver Understanding Excellent Plan Amount of Therapy Recommended 3 Months Comment Once every 2-3 weeks. Length of Session 45 Minutes Therapeutic Contents Client Education,Home Exercise Program,Voice Training Provided Patient/Caregiver Instruction Home Exercise Program, Questions/Concerns Therapy Recommendations Continue with Current Program, Recommended Exercises/ Activities
--- NOTE | 2021-01-19 16:07 | ST.OPTN ---
Visit Care Team Role Provider Type Brendan Cesar DO Attending Provider Non-Staff Family Provider Primary Care Provider Referring Provider Address: [address] [place] [address], [place], [address] CHEMICAL EDUCATOR Treatment Note CHEMICAL EDUCATOR Clinical Instructor Line Start: 12/17/20 09:52 Freq: Status: Active Protocol: Document 01/19/21 16:05 LNK (Rec: 01/19/21 16:05 LNK [email or web address]) Clinical Instructor Signature Clinical Instructor Clinical Instructor Yes CHEMICAL EDUCATOR Treatment Note Start: 12/17/20 09:52 Freq: Status: Active Protocol: Document 01/19/21 15:50 HM (Rec: 01/19/21 16:00 HM [id number]) Speech Pathology Treatment Note Session Time Visit Start Time 13:30 Visit Stop Time 14:15 Total Visit Minutes 45 Visit Information Visit Number 3 Plan of Care Dates 12/16/20-03/17/21 Setting Treatment Setting Outpatient Care Visit Type Note Type Treatment Note Next Note Type Next Note Type Treatment Note General Information General Information Pt is a 65 year old female with a history of vocal hoarseness and swallowing difficulty. She reported that these problems started approximately 3-4 months ago. She added that in August 2011 , she experienced a significant increase in anxiety related to several life stressors. In addition to her primary complaints, the pt reported that she has also experienced an increase in acid reflux (she has a prior history of GERD). She also reported a history of GI issues, but was not specific. She underwent endoscopy on , which she reported resulted in exacerbation of her gastritis. Relative to her voice, the pt reported that her voice is worse in the a.m. and improves during the day. Later on in the session, she stated that her voice will deteriorate around 4 pm. She also reported that she is experiencing a lot of mucous/ phlegm in her throat and that she is losing her singing voice. Pt has been told she needs a C-pap at night, but found that to be difficult to tolerate, so she is not using the C-pap. Consequently, she awakens with a very dry mouth and throat from mouth- breathing during the night. She stated she does become dehydrated frequently. Subjective Identification Type Name Identification Reconciled With Medical Record Chief Complaint(s) Swallowing,Voice Additional Areas of Concern GERD Patient Knowledge/Awareness of CHEMICAL EDUCATOR Role Excellent in Treatment Patient/Caregiver Compliance with Home Good Exercise Program Comment Pt reports adjusting the home practice program significantly as needed. Objective Short Term Goals Pt will perform glottal adduction exercises as prescribed 3-5x per day, as reported by pt. Pt will follow anti-reflux precautions to reduce/ inflammation irritation of vocal folds and phlegm/mucous, per pt report. Care Home Goals Improved vocal quality and singing voice. Treatment Activities Pt reported completion of glottal adduction and forward focus exercises. After asking clarifying questions and receiving feedback, Alda demonstrated forward focus with /m/ initial CV syllables with 75% accuracy. Education provided on forward focus in conjunction with diaphragmatic breathing to project her voice without pressure on the vocal folds. Assessment Patient Response to Treatment Excellent Rehab Potential Excellent Impairments Identified Dysphonia,Vocal Quality,Vocal Hygiene Progress Towards Goals Excellent Progress Assessment of Overall Progress Improving Assessment of Improvement Alda is very pleased with the results of speech therapy so far. She noted the difference in sensation of forward focus voice while singing and also noted a reduction in spinal tension around her neck. Recommend continued practice with abdominal breathing during vocal adduction exercises and establishing forward placement of m-loaded words and phrases. Reviewed with Patient Progress Being Made,Home Exercise Program Patient/Caregiver Understanding Excellent Plan Amount of Therapy Recommended 3 Months Comment Once every 2-3 weeks. Length of Session 45 Minutes Therapeutic Contents Client Education,Home Exercise Program,Voice Training Provided Patient/Caregiver Instruction Home Exercise Program, Questions/Concerns Therapy Recommendations Continue with Current Program, Recommended Exercises/ Activities
--- NOTE | 2021-02-06 09:08 | ST.OPTN ---
Visit Care Team Role Provider Type Brendan Cesar DO Attending Provider Non-Staff Family Provider Primary Care Provider Referring Provider Address: [address] [place] [address], [place], [address] TRANSITION MGR Treatment Note TRANSITION MGR Clinical Instructor Line Start: 12/17/20 09:52 Freq: Status: Active Protocol: Document 01/19/21 16:05 LNK (Rec: 01/19/21 16:05 LNK [email or web address]) Clinical Instructor Signature Clinical Instructor Clinical Instructor Yes TRANSITION MGR Treatment Note Start: 12/17/20 09:52 Freq: Status: Active Protocol: Document 02/05/21 08:59 LNK (Rec: 02/06/21 09:06 LNK [email or web address]) Speech Pathology Treatment Note Session Time Visit Start Time 14:30 Visit Stop Time 15:30 Total Visit Minutes 60 Visit Information Visit Number 4 Plan of Care Dates 12/16/20-03/17/21 Setting Treatment Setting Outpatient Care Visit Type Note Type Treatment Note Next Note Type Next Note Type Treatment Note General Information General Information Pt is a 65 year old female with a history of vocal hoarseness and swallowing difficulty. She reported that these problems started approximately 3-4 months ago. She added that in August 2011 , she experienced a significant increase in anxiety related to several life stressors. In addition to her primary complaints, the pt reported that she has also experienced an increase in acid reflux (she has a prior history of GERD). She also reported a history of GI issues, but was not specific. She underwent endoscopy on , which she reported resulted in exacerbation of her gastritis. Relative to her voice, the pt reported that her voice is worse in the a.m. and improves during the day. Later on in the session, she stated that her voice will deteriorate around 4 pm. She also reported that she is experiencing a lot of mucous/ phlegm in her throat and that she is losing her singing voice. Pt has been told she needs a C-pap at night, but found that to be difficult to tolerate, so she is not using the C-pap. Consequently, she awakens with a very dry mouth and throat from mouth- breathing during the night. She stated she does become dehydrated frequently. Subjective Identification Type Name Identification Reconciled With Medical Record Chief Complaint(s) Swallowing,Voice Additional Areas of Concern GERD Patient Knowledge/Awareness of TRANSITION MGR Role Excellent in Treatment Patient/Caregiver Compliance with Home Good Exercise Program Comment Pt reports adjusting the home practice program significantly as needed. Objective Short Term Goals Pt will perform glottal adduction exercises as prescribed 3-5x per day, as reported by pt. Pt will follow anti-reflux precautions to reduce/ inflammation irritation of vocal folds and phlem/mucous, per pt report. Half-Way Goals Improved vocal quality and singing voice. Treatment Activities Pt reported completion of glottal adduction and forward focus exercises. After asking clarifying questions and receiving feedback, Alda demonstrated forward focus with /m/ initial CV syllables with 75% accuracy. Education continued re: forward focus in conjunction with diaphragmatic breathing to project her voice without pressure on the vocal folds. Reviewed A&P of the voice with regard to specific questions the pt had. Assessment Patient Response to Treatment Excellent Rehab Potential Excellent Impairments Identified Dysphonia,Vocal Quality,Vocal Hygiene Progress Towards Goals Excellent Progress Assessment of Overall Progress Improving Assessment of Improvement Alda is very pleased with the results of speech therapy so far. She noted the difference in sensation of forward focus voice while singing; however, she reported neck tension around the back of her neck. Recommended continued practice with abdominal breathing during vocal adduction exercises, keeping her jaw parallel to the floor and establishing forward placement of m-loaded CV/VC syllable shapes. Reviewed with Patient Progress Being Made,Home Exercise Program Patient/Caregiver Understanding Excellent Plan Amount of Therapy Recommended 3 Months Comment Once every 2-3 weeks. Length of Session 60 Minutes Therapeutic Contents Client Education,Home Exercise Program,Voice Training Provided Patient/Caregiver Instruction Home Exercise Program, Questions/Concerns Therapy Recommendations Continue with Current Program, Recommended Exercises/ Activities
--- NOTE | 2021-03-19 16:48 | ST.OPTN ---
Visit Care Team Role Provider Type Brendan Cesar DO Attending Provider Non-Staff Family Provider Primary Care Provider Referring Provider Address: [address] [place] [address], [place], [address] AUDIO VIDEO REPAIRER Treatment Note AUDIO VIDEO REPAIRER Clinical Instructor Line Start: 12/17/20 09:52 Freq: Status: Active Protocol: Document 01/19/21 16:05 LNK (Rec: 01/19/21 16:05 LNK [email or web address]) Clinical Instructor Signature Clinical Instructor Clinical Instructor Yes AUDIO VIDEO REPAIRER Treatment Note Start: 12/17/20 09:52 Freq: Status: Active Protocol: Document 03/19/21 16:34 LNK (Rec: 03/19/21 16:47 LNK [email or web address]) Speech Pathology Treatment Note Session Time Visit Start Time 15:30 Visit Stop Time 16:15 Total Visit Minutes 45 Visit Information Visit Number 5 Plan of Care Dates 03/19/21-06/19/21 Setting Treatment Setting Outpatient Care Visit Type Note Type Re-Evaluation Next Note Type Next Note Type Treatment Note General Information General Information Pt is a 65 year old female with a history of vocal hoarseness and swallowing difficulty. She reported that these problems started approximately 3-4 months ago. She added that in August 2011 , she experienced a significant increase in anxiety related to several life stressors. In addition to her primary complaints, the pt reported that she has also experienced an increase in acid reflux (she has a prior history of GERD). She also reported a history of GI issues, but was not specific. She underwent endoscopy on , which she reported resulted in exacerbation of her gastritis. Relative to her voice, the pt reported that her voice is worse in the a.m. and improves during the day. Later on in the session, she stated that her voice will deteriorate around 4 pm. She also reported that she is experiencing a lot of mucous/ phlegm in her throat and that she is losing her singing voice. Pt has been told she needs a C-pap at night, but found that to be difficult to tolerate, so she is not using the C-pap. Consequently, she awakens with a very dry mouth and throat from mouth- breathing during the night. She stated she does become dehydrated frequently. Subjective Identification Type Name Identification Reconciled With Medical Record Chief Complaint(s) Swallowing,Voice Additional Areas of Concern GERD Patient Knowledge/Awareness of AUDIO VIDEO REPAIRER Role Excellent in Treatment Patient/Caregiver Compliance with Home Good Exercise Program Objective Short Term Goals Pt will perform glottal adduction exercises as prescribed 3-5x per day, as reported by pt. Pt will follow anti-reflux precautions to reduce/ inflammation irritation of vocal folds and phlem/mucous, per pt report. Penitentiary Goals Improved vocal quality and singing voice. Treatment Activities Pt reported That she has been a little lax in practicing the exercises prescribed. However , she reported that she feels her voice and swallowing have improved significantly. Perceptually, her voice is definitely improved. Will re- assess vocal parameters next visit. Alda raised a concern that she has started to stutter and is wondering if there is something neurological that explains it. Tried to reassure the pt that some disfluent speech in normal and can vary with stress, fatigue, distraction, etc. She wasn't sure about my explanation. We continued to discuss the difference between stuttering and disfluency and possible relationship to aging . After asking clarifying questions and receiving feedback, Alda discussed and described her success with forward focus with /m/ initial CV syllables. We continued re : forward focus in conjunction with diaphragmatic breathing to project her voice without pressure on the vocal folds. Alda reported that her swallowing has improved significantly as well. Assessment Patient Response to Treatment Excellent Rehab Potential Excellent Impairments Identified Dysphonia,Vocal Quality,Vocal Hygiene Progress Towards Goals Excellent Progress Assessment of Overall Progress Improving Assessment of Improvement Alda reported that she is going through some life changes for the better. She is concerned that she may have something neurological going on. Her active directory architect has been suggesting that she have neuromuscular assessment to determine if there is something up river that is causing her foot issues. Reviewed with Patient Progress Being Made,Home Exercise Program Patient/Caregiver Understanding Excellent Plan Amount of Therapy Recommended 3 Months Comment Once every 2-3 weeks. Length of Session 60 Minutes Therapeutic Contents Client Education,Home Exercise Program,Voice Training Provided Patient/Caregiver Instruction Home Exercise Program, Questions/Concerns Therapy Recommendations Continue with Current Program, Recommended Exercises/ Activities
--- NOTE | 2021-04-20 15:24 | ST.OPTN ---
Visit Care Team Role Provider Type Brendan Cesar DO Attending Provider Non-Staff Family Provider Primary Care Provider Referring Provider Address: [address] [place] [address], [place], [address] CAREER PLACEMENT SERVICES COUNSELOR Treatment Note CAREER PLACEMENT SERVICES COUNSELOR Clinical Instructor Line Start: 12/17/20 09:52 Freq: Status: Active Protocol: Document 01/19/21 16:05 LNK (Rec: 01/19/21 16:05 LNK [email or web address]) Clinical Instructor Signature Clinical Instructor Clinical Instructor Yes CAREER PLACEMENT SERVICES COUNSELOR Treatment Note Start: 12/17/20 09:52 Freq: Status: Active Protocol: Document 04/20/21 14:22 LNK (Rec: 04/20/21 15:24 LNK [email or web address]) Speech Pathology Treatment Note Session Time Visit Start Time 14:30 Visit Stop Time 15:15 Total Visit Minutes 45 Visit Information Visit Number 6 Plan of Care Dates 03/19/21-06/19/21 Setting Treatment Setting Outpatient Care Visit Type Note Type Re-Evaluation Next Note Type Next Note Type Discharge Summary General Information General Information Pt is a 65 year old female with a history of vocal hoarseness and swallowing difficulty. She reported that these problems started approximately 3-4 months ago. She added that in August 2011 , she experienced a significant increase in anxiety related to several life stressors. In addition to her primary complaints, the pt reported that she has also experienced an increase in acid reflux (she has a prior history of GERD). She also reported a history of GI issues, but was not specific. She underwent endoscopy on , which she reported resulted in exacerbation of her gastritis. Relative to her voice, the pt reported that her voice is worse in the a.m. and improves during the day. Later on in the session, she stated that her voice will deteriorate around 4 pm. She also reported that she is experiencing a lot of mucous/ phlegm in her throat and that she is losing her singing voice. Pt has been told she needs a C-pap at night, but found that to be difficult to tolerate, so she is not using the C-pap. Consequently, she awakens with a very dry mouth and throat from mouth- breathing during the night. She stated she does become dehydrated frequently. Subjective Identification Type Name Identification Reconciled With Medical Record Chief Complaint(s) Swallowing,Voice Additional Areas of Concern GERD Patient Knowledge/Awareness of CAREER PLACEMENT SERVICES COUNSELOR Role Excellent in Treatment Patient/Caregiver Compliance with Home Good Exercise Program Objective Short Term Goals Pt will perform glottal adduction exercises as prescribed 3-5x per day, as reported by pt. Pt will follow anti-reflux precautions to reduce/ inflammation irritation of vocal folds and phlem/mucous, per pt report. Detention Goals Improved vocal quality and singing voice. Treatment Activities Re-evaluation of vocal parameters. CAP-V measures were determined to all be below 10%. Jitter=.56; Shimmer=2.75 MPT was measures at 21.5s; Pitch was 194.2 and pitch atqlo=752.2-295Hz. All parameters were determined to be WNL. Pt also reported GERD is better managed and she does not have swallowing problems any more. Pt is discharged and encouraged to return if she notes changes in her voice or swallowing Assessment Patient Response to Treatment Excellent Rehab Potential Excellent Impairments Identified Dysphonia,Vocal Quality,Vocal Hygiene Progress Towards Goals Excellent Progress Assessment of Overall Progress Improving Assessment of Improvement Alda's voice and vocal parameters are WNL Reviewed with Patient Progress Being Made,Home Exercise Program Patient/Caregiver Understanding Excellent Plan Amount of Therapy Recommended 3 Months Comment Once every 2-3 weeks. Length of Session 60 Minutes Therapeutic Contents Client Education,Home Exercise Program,Voice Training Provided Patient/Caregiver Instruction Home Exercise Program, Questions/Concerns Therapy Recommendations Continue with Current Program, Recommended Exercises/ Activities
--- NOTE | 2021-04-20 15:28 | ST.OPDS ---
Visit Care Team Role Provider Type Brendan Cesar DO Attending Provider Non-Staff Family Provider Primary Care Provider Referring Provider Address: [address] [place] [address], [address] GUN STOCK MAKER Treatment Note GUN STOCK MAKER Clinical Instructor Line Start: 12/17/20 09:52 Freq: Status: Active Protocol: Document 01/19/21 16:05 LNK (Rec: 01/19/21 16:05 LNK [email or web address]) Clinical Instructor Signature Clinical Instructor Clinical Instructor Yes GUN STOCK MAKER Treatment Note Start: 12/17/20 09:52 Freq: Status: Active Protocol: Document 04/20/21 15:24 LNK (Rec: 04/20/21 15:27 LNK [email or web address]) Speech Pathology Treatment Note Session Time Visit Start Time 14:30 Visit Stop Time 15:15 Total Visit Minutes 45 Visit Type Note Type Discharge Summary General Information General Information Pt is a 65 year old female with a history of vocal hoarseness and swallowing difficulty. She reported that these problems started approximately 3-4 months ago. Subjective Chief Complaint(s) Swallowing,Voice Additional Areas of Concern GERD Patient Knowledge/Awareness of GUN STOCK MAKER Role Excellent in Treatment Patient/Caregiver Compliance with Home Excellent Exercise Program Objective Short Term Goals Goals Met Utility System Repairer Goals Goal Met Treatment Activities Re-evaluation of vocal parameters. CAP-V measures were determined to all be below 10%. Jitter=.56; Shimmer=2.75 MPT was measures at 21.5s; Pitch was 194.2 and pitch bfkwy=994.2-295Hz. All parameters were determined to be WNL. Pt also reported GERD is better managed and she does not have swallowing problems any more. Pt is discharged and encouraged to return if she notes changes in her voice or swallowing Assessment Patient Response to Treatment Excellent Progress Towards Goals Appropriate for Discharge Plan Amount of Therapy Recommended No Further Therapy Therapy Recommendations Discharge from Speech Therapy
== END 2021-04-21 07:44 | disposition home or self-care (01) ==
LOC: SP 14:30
PROVIDERS: Family Provider Neuromusculoskeletal Medicine & OMM; PCP Neuromusculoskeletal Medicine & OMM; Referring Provider Neuromusculoskeletal Medicine & OMM; Visit Provider Neuromusculoskeletal Medicine & OMM
DX: R49.0 Dysphonia (principal); R13.10 Dysphagia, unspecified
CPT/HCPCS: 92507; 92520; 92524

== ENCOUNTER → 2021-06-23 17:19 | Outpatient (CLI) | payer MEDICARE, OTHER, SELFPAY ==
[2021-06-23 18:30] LABS: COVID19 -Nasal RAPID Negative (Negative)
== END ==
PROVIDERS: Family Provider Neuromusculoskeletal Medicine & OMM; PCP Family Medicine; Referring Provider Nurse Practitioner Family; Visit Provider Nurse Practitioner Family
DX: Z20.822 Contact with and (suspected) exposure to COVID-19 (principal); J02.9 Acute pharyngitis, unspecified; R09.81 Nasal congestion; R53.83 Other fatigue
CPT/HCPCS: 87635

== ENCOUNTER → 2021-07-17 14:46 | Outpatient (CLI) | payer MEDICARE, OTHER, SELFPAY ==
[2021-07-17] MEDS: COVID-19 VACC #3, MRNA(MOD) 50 MCG/0.25 ML VIAL IM (14:51)
== END ==
PROVIDERS: Family Provider Neuromusculoskeletal Medicine & OMM; PCP Family Medicine; Visit Provider Internal Medicine
DX: Z23 Encounter for immunization (principal)
CPT/HCPCS: 0013A; 91301

== ENCOUNTER → 2021-11-11 09:19 | Outpatient (CLI) | payer MEDICARE, OTHER, SELFPAY ==
[2021-11-11 10:25] LABS: Add Manual Diff / Slide Review NO; Basophils Absolute Auto 0 /uL (0-100); Basophils Percent Auto 0.5 % (0-2); Eosinophils Absolute Auto 0 /uL (0-450); Hematocrit 37.9 % (36-46); Hemoglobin 12.5 g/dL (12.0-16.0); Lymphocytes Absolute Auto 600 /uL (1100-4500); Lymphocytes Percent Auto 18.6 % (25-40); Mean Corpuscular HGB Conc 33.1 % (30-36); Mean Corpuscular Hemoglobin 31.7 PG (26-34); Mean Corpuscular Volume 95.8 fL (80-100); Monocytes Absolute Auto 200 /uL (0-900); Monocytes Percent Auto 6.7 % (3-14); Neutrophils Absolute Auto 2400 /uL (1500-7000); Neutrophils Percent Auto 73.2 % (50-75); Platelet Count 168 X10^3/uL (150-400); Red Blood Cell Count 3.96 X10^6/uL (4.0-5.2); Red Cell Distribution Width 12.8 % (11.6-14.8); White Blood Cell Count 3.3 X10^3/uL (4.5-11.0)
[2021-11-11 10:47] LABS: Alanine Aminotransferase 35 IU/L (<35); Albumin 4.1 g/dL (3.5-5.0); Albumin Globulin Ratio 1.6 (1.0-2.8); Alkaline Phosphatase 47 U/L (38-126); Aspartate Aminotransferase 38 IU/L (14-36); BUN Creatinine Ratio 37.5 (6-22); Bilirubin Total 0.7 mg/dL (0.2-1.3); Blood Urea Nitrogen 27 mg/dL (7-17); Calcium 9.1 mg/dL (8.4-10.2); Carbon Dioxide 27 mmol/L (22-32); Chloride 102 mmol/L (98-107); Cholesterol 272 mg/dL (140-199); Estimated Glomerular Filt Rate > 60.0 mL/min (>60); Globulin 2.6 g/dL (1.7-4.1); Glucose 85 mg/dL (80-110); HDL Cholesterol 106 mg/dL (40-60); HEMOLYSIS < 15 (0-50); LDL Cholesterol Calculated 157 mg/dL (<100); Potassium 3.6 mmol/L (3.4-5.1); Sodium 136 mmol/L (137-145); Total Protein 6.7 g/dL (6.3-8.2); Triglycerides 46 mg/dL (35-150)
[2021-11-11 11:05] LABS: Free T3, Triiodothyronine Free 4.07 pg/mL (2.77-5.27); Free T4, Direct Thyroxine 1.54 ng/dL (0.78-2.19)
[2021-11-11 11:19] LABS: Thyroid Stimulating Hormone 2.36 uIU/mL (0.47-4.68)
[2021-11-11 11:35] LABS: Vitamin B12 515 pg/mL (239-931)
[2021-11-13 13:49] LABS: Zinc,RBC 1489 ug/dL (878-1660)
[2021-11-13 20:15] LABS: Folate, RBC 1159 ng/mL (>498); Hematocrit 37.3 % (34.0-46.6); Hemolysate 432.4 ng/mL (Not Estab.)
== END ==
PROVIDERS: Family Provider Neuromusculoskeletal Medicine & OMM; PCP Family Medicine; Referring Provider Family Medicine; Visit Provider Family Medicine
DX: E03.9 Hypothyroidism, unspecified (principal); E55.9 Vitamin D deficiency, unspecified; E78.49 Other hyperlipidemia; M85.80 Other specified disorders of bone density and structure, unspecified site; R53.83 Other fatigue; F43.29 Adjustment disorder with other symptoms
CPT/HCPCS: 36415; 80053; 80061; 82306; 82607; 82747; 84439; 84443; 84481; 84630; 85014; 85025

== ENCOUNTER 2021-11-18 01:03 | Emergency (ER) | payer MEDICARE, OTHER, SELFPAY ==
[2021-11-18 01:18] VITALS: BP 144/64; PULSE 73; RESP 15; TEMP 36.4; O2SAT 99; BMI 21.1
--- NOTE | 2021-11-18 01:18 | ED_ITS ---
HPI - Back Pain/Injury General Chief Complaint: Back Pain/Injury Stated Complaint: HAVING LEFT FLANK PAIN, NAUSEA Time Seen by Provider: 11/18/21 01:15 History of Present Illness HPI Narrative: 66F nonsmoker with history of osteopenia, fatigue, chronic bowel issues presents with a chief complaint of a rather sudden onset left flank pain that started about 90 minutes ago. She states that it is sharp and stabbing and about a 6/10 in severity. She states that seems to be worse when she moves and it is hard for her to lay down. Improves with rest. She denies any urinary complaints such as frequency, urgency, dysuria or hematuria. She states she frequently has abdominal cramping and has been having trouble absorbing fats in her bowels. She denies any constipation or diarrhea today. She has had no fever or chills. She is nauseated but has had no vomiting Related Data Home Medications Medication Instructions Recorded Confirmed acetaminophen 500 mg tablet 1,000 mg PO DAILY PRN 11/26/20 10/30/21 carboxymethylcellulose 1 - 2 unit EYE-BOTH DAILY 11/26/20 10/30/21 slippery elm bark 400 mg PO DAILY 11/26/20 10/30/21 valerian root 500 mg capsule 500 mg PO BEDTIME PRN 11/26/20 10/30/21 Previous Rx's Medication Instructions Recorded see scans from 09/07/19 #1 ea 09/07/19 clotrimazole 1 % topical cream 1 applic TOPICAL BID 14 Days #15 g 03/03/21 baclofen 10 mg tablet 10 mg PO TID PRN #90 tab 03/11/21 ketorolac 10 mg tablet 10 mg PO Q6H PRN #14 tab 11/18/21 ondansetron 4 mg disintegrating 4 mg PO TID-QID PRN #10 tab 11/18/21 tablet tamsulosin 0.4 mg capsule (Flomax) 0.4 mg PO DAILY #30 cap 11/18/21 Allergies Allergy/AdvReac Type Severity Reaction Status Date / Time adhesive Allergy Severe Took layer Verified 10/30/21 16:01 of skin off Review of Systems Review of Systems Narrative: GENERAL: Denies chills, fatigue, malaise, fever, sweats. HEENT: Denies sinus pain, ear pain, sore throat, difficulty swallowing, dizziness. RESPIRATORY: Denies dyspnea, cough, wheezing, hemoptysis, sputum. CARDIOVASCULAR: Denies chest pain, palpitations, orthopnea, edema, GASTROINTESTINAL: See HPI. : See HPI MUSCULOSKELETAL: denies weakness, joint pain, or bony pain SKIN: Denies rash, skin lesions, or other NEUROLOGIC: Denies weakness, headache, numbness, change in speech, confusion, seizures, incoordination. PSYCHIATRIC: No concerning psychosocial issues. 12 point review of systems is negative except for those stated above Patient History Medical History Abnormal Pap smear of cervix (~1977) Bilateral carpal tunnel syndrome Bilateral foot pain Bilateral hand pain Bilateral piriformis syndrome Borderline hypothyroidism BPPV (benign paroxysmal positional vertigo) (~10/2018) Broken toe (~2011) Carpal tunnel syndrome (~1995) Cervical somatic dysfunction Cervical spine disease (~2010) Chicken pox Chronic back pain Chronic gastritis Coagulation disorder (~1978) Colon polyps (~2010) [place] of foot Depression Dyspareunia Eczema (~2017) Esophagitis (~2010) Familial hyperlipidemia Fatigue Foot pain Gastritis Grief reaction Headache Hearing loss Hemorrhoid Human papilloma virus (~1995) Iliotibial band syndrome, left leg Irregular menstrual cycle Lumbar region somatic dysfunction Measles Mumps Osteoarthritis Osteopenia (~2013) Painful menstrual periods Pelvic somatic dysfunction Pneumonia Post traumatic stress disorder (PTSD) Sacral region somatic dysfunction Scoliosis Screening for breast cancer Segmental and somatic dysfunction of abdomen and other regions Segmental and somatic dysfunction of rib cage Short leg syndrome, left, acquired Shoulder pain (~2009) Skin abnormality Sleep apnea (~2014) Somatic dysfunction of lower extremity Stress and adjustment reaction Thoracic region somatic dysfunction Tinnitus Upper extremity somatic dysfunction Vaccination hesitancy by patient Vertigo (~01/2018) Surgical History Anesthesia History of cataract removal with insertion of prosthetic lens (~2016) History of section (~1978) History of laparotomy (~1975) History of tonsillectomy and adenoidectomy (~1959) Thyroglossal cyst (~1958) Family History Father Cancer Diabetes mellitus Heart disease Hypertension Alcoholic Mother Hypertension Alcoholic COPD (chronic obstructive pulmonary disease) Mental health problem Brother Heart disease Hypertension Stroke Gastritis Sleep apnea Hyperlipidemia Sister Breast cancer Grandfather Hypertension Alcoholic Gastritis Grandfather No problems noted. Daughter History of thyroidectomy Grandmother Medical history unknown Grandmother Cerebral hemorrhage Social History marital status: number of children: 1 household members: spouse lives independently: Yes housing: house education level: college occupational status: other Smoking Status: Former smoker alcohol intake: never substance use type: does not use Smoking Status: Former smoker Substance Use Type: does not use Exam Narrative Exam Narrative: GENERAL: [66] year old patient appears stated age. Thin, obviously uncomf ortable HEAD: Atraumatic. Normocephalic. EYES: Pupils equal round and reactive. Extraocular motions intact. No scleral icterus. No injection or drainage. ENT: Nose without bleeding, purulent drainage. Throat without erythema, tonsillar hypertrophy or exudate. Airway patent. NECK: Trachea midline. Non tender CARDIOVASCULAR: Regular rate and rhythm without murmurs, gallops, or rubs. RESPIRATORY: Clear to auscultation. Breath sounds equal bilaterally. No wheezes, rales, or rhonchi. GASTROINTESTINAL: Abdomen soft, non-tender, nondistended. EXTREMITIES: No edema or joint tenderness. BACK: Nontender without deformity or crepitance. Left flank tenderness, no obvious swelling, subcu emphysema, induration or other NEURO: AOx3. SKIN: No rash or erythema of visible areas Initial Vital Signs Initial Vital Signs: Vital Signs Temperature 97.5 F L 11/18/21 01:18 Pulse Rate 73 11/18/21 01:18 Respiratory Rate 15 11/18/21 01:18 Blood Pressure 144/64 H 11/18/21 01:18 Pulse Oximetry 99 11/18/21 01:18 Course Orders Ordered: ED Orders 11/18/21 01:23 Complete Blood Count AUTO DIFF Stat Comprehensive Metabolic Panel Stat Lipase Stat 11/18/21 02:04 CT kidney ureter bladder (KUB) Stat Discontinued Medications Sodium Chloride (Normal Saline 0.9%) 1,000 mls @ 1,000 mls/hr IV BOLUS ONE Stop: 11/18/21 02:16 Last Infusion: 11/18/21 03:07 Dose: 0 mls/hr Documented by: Admin: 11/18/21 02:04 Dose: 1,000 mls/hr Documented by: [email or web address] Ketorolac Tromethamine (Ketorolac 30 Mg/Ml Vial) 15 mg IV NOW ONE Stop: 11/18/21 02:00 Last Admin: 11/18/21 02:04 Dose: 15 mg Documented by: JESS Ondansetron HCl (Ondansetron 4 Mg/2 Ml Inj) 4 mg IV NOW ONE Stop: 11/18/21 02:00 Last Admin: 11/18/21 02:05 Dose: 4 mg Documented by: JESS Vital Signs Vital signs: Vital Signs - 8 hr 11/18/21 01:18 Temperature 97.5 F L Pulse Rate 73 Respiratory Rate 15 Blood Pressure 144/64 H Pulse Oximetry 99 MDM - Back Pain/Injury Lab Data Result diagrams: 11/18/21 01:23 11/18/21 01:23 Labs: Lab Results 11/18/21 11/18/21 Range/Units 01: 01:23 WBC 6.0 (4.5-11.0) X10^3/uL RBC 4.03 (4.0-5.2) X10^6/uL Hgb 12.6 (12.0-16.0) g/dL Hct 38.5 (36-46) % MCV 95.6 (80-100) fL MCH 31.4 (26-34) PG MCHC 32.8 (30-36) % RDW 12.7 (11.6-14.8) % Plt Count 197 (150-400) X10^3/uL Neut % (Auto) 81.9 H (50-75) % Lymph % (Auto) 13.2 L (25-40) % [place] % (Auto) 4.0 (3-14) % Eos % (Auto) 0.5 L (2-4) % Baso % (Auto) 0.4 (0-2) % Neut # (Auto) 4900 (9858-4502) /uL Lymph # (Auto) 800 L (4274-1802) /uL [place] # (Auto) 200 (0-900) /uL Eos # (Auto) 0 (0-450) /uL Baso # (Auto) 0 (0-100) /uL Sodium 136 L (137-145) mmol/L Potassium 3.7 (3.4-5.1) mmol/L Chloride 105 (98-107) mmol/L Carbon Dioxide 25 (22-32) mmol/L BUN 51 H (7-17) mg/dL Creatinine 0.93 (0.52-1.04) mg/dL Estimated GFR 60.0 (>60) mL/min BUN/Creatinine Ratio 54.8 H (6-22) Glucose 110 (80-110) mg/dL Calcium 9.3 (8.4-10.2) mg/dL Total Bilirubin 0.7 (0.2-1.3) mg/dL AST 40 H (14-36) IU/L ALT 36 H (<35) IU/L Alkaline Phosphatase 51 (38-126) U/L Total Protein 7.4 (6.3-8.2) g/dL Albumin 4.4 (3.5-5.0) g/dL Globulin 3.0 (1.7-4.1) g/dL Albumin/Globulin Ratio 1.5 (1.0-2.8) Lipase 164 (23-300) U/L Urine Dip Bedside Urine Glucose Negative Bedside Urine Bilirubin - Negative Bedside Urine Ketone - Negative Urine Specific [place] 1.020 Bedside Urine Occult Blood +++ Bedside Urine pH 5.0 Bedside Urine Protein - Negative Bedside Urine Urobilinogen - Negative Bedside Urine Nitrite - Negative Bedside Urine Leukocytes - Negative Esterase MDM Narrative Medical decision making narrative: Patient presents with sudden-onset left flank pain which may radiate into her groin. Her urine shows blood and no signs of infection, blood work is reassuring, CT shows a 3 mm stone with mild hydro. Her pain is well controlled, she is tolerating orals, there is no sign of sepsis. Return precautions discussed and questions answered to her apparent satisfaction Discharge Plan Departure Patient Disposition: Home Clinical Impression: Kidney stone on left side Instructions: DI for Kidney Stones Activity Restrictions/Additional Instructions: *You have been diagnosed with [3 mm left ureteral vesicular junction kidney stone with mild hydronephrosis. As we discussed blood work and urine are reassuring and suggest no signs of infection, electrolyte abnormality or kidney issue associated with this stone. *What to do: *Please continue to take your regular medications as directed. [ x] New medication prescriptions sent to your pharmacy: [[facility] ] [ ] New medication written as a paper prescription [ ] No new medications given *Please follow up with your primary care provider in 2-3 days, call for an appointment. Let them know you were seen in the Emergency Department and that we ask that you be seen in follow up. We will electronically transmit a record of today's note if your PCP is in our system *If you do not have a primary care provider please contact the [facility] Resource line at [phone]. They will ask some questions about your medical history and help get you set up with a doctor in the community. *Return to Emergency Department if you should have any new, worsening or concerning symptoms, such as [fever greater than 101 F, shaking chills, worsening pain, persistent vomiting or other bothersome symptoms] Prescriptions: New ketorolac 10 mg tablet 10 mg PO Q6H PRN (Reason: pain) Qty: 14 0RF tamsulosin [Flomax] 0.4 mg capsule 0.4 mg PO DAILY Qty: 30 0RF ondansetron 4 mg tablet,disintegrating 4 mg PO TID-QID PRN (Reason: nausea and vomiting) Qty: 10 0RF No Action (DME) see scans from 09/07/19 Qty: 1 0RF Dose Instruction: As directed Rx Instructions: list of supplements updated as of 09/07/19 baclofen 10 mg tablet 10 mg PO TID PRN (Reason: Insomnia and muscle tension) Qty: 90 1RF clotrimazole 1 % cream 1 applic topical BID 14 Days Qty: 15 1RF acetaminophen 500 mg Tablet 1,000 mg PO DAILY PRN (Reason: Pain (Scale Score 1-3)) 0RF valerian root 500 mg Capsule 500 mg PO BEDTIME PRN (Reason: Sleep) 0RF carboxymethylcellulose 1 - 2 unit EYE-BOTH DAILY 0RF slippery elm bark 400 mg PO DAILY 0RF Referrals: Elliott Brenner MD [Physician] - Dameon Irwin DO [Primary Care Provider] -
[2021-11-18 01:36] LABS: Add Manual Diff / Slide Review NO; Basophils Absolute Auto 0 /uL (0-100); Basophils Percent Auto 0.4 % (0-2); Eosinophils Absolute Auto 0 /uL (0-450); Eosinophils Percent Auto 0.5 % (2-4); Hematocrit 38.5 % (36-46); Hemoglobin 12.6 g/dL (12.0-16.0); Lymphocytes Absolute Auto 800 /uL (1100-4500); Lymphocytes Percent Auto 13.2 % (25-40); Mean Corpuscular HGB Conc 32.8 % (30-36); Mean Corpuscular Hemoglobin 31.4 PG (26-34); Mean Corpuscular Volume 95.6 fL (80-100); Monocytes Absolute Auto 200 /uL (0-900); Neutrophils Absolute Auto 4900 /uL (1500-7000); Neutrophils Percent Auto 81.9 % (50-75); Platelet Count 197 X10^3/uL (150-400); Red Blood Cell Count 4.03 X10^6/uL (4.0-5.2); Red Cell Distribution Width 12.7 % (11.6-14.8)
[2021-11-18 01:43] LABS: Alanine Aminotransferase 36 IU/L (<35); Albumin 4.4 g/dL (3.5-5.0); Albumin Globulin Ratio 1.5 (1.0-2.8); Alkaline Phosphatase 51 U/L (38-126); Aspartate Aminotransferase 40 IU/L (14-36); BUN Creatinine Ratio 54.8 (6-22); Bilirubin Total 0.7 mg/dL (0.2-1.3); Blood Urea Nitrogen 51 mg/dL (7-17); Calcium 9.3 mg/dL (8.4-10.2); Carbon Dioxide 25 mmol/L (22-32); Chloride 105 mmol/L (98-107); Glucose 110 mg/dL (80-110); HEMOLYSIS < 15 (0-50); Lipase 164 U/L (23-300); Potassium 3.7 mmol/L (3.4-5.1); Sodium 136 mmol/L (137-145); Total Protein 7.4 g/dL (6.3-8.2)
[2021-11-18] MEDS: SODIUM CHLORIDE 0.9% 1,000 ML 1000 ML IV (02:04)
[2021-11-18] MEDS: KETOROLAC 30 MG/ML VIAL 15 MG IV (02:04)
--- NOTE | 2021-11-18 02:04 | DI.CT.S_ITS ---
PROCEDURE: CT KIDNEY URETER BLADDER (KUB) INDICATIONS: flank pain, hematuria TECHNIQUE: Axial sections were acquired from the lung bases to the pubic symphysis. Coronal and sagittal reformats were performed. For radiation dose reduction, the following was used: automated exposure control, adjustment of mA and/or kV according to patient size. COMPARISON: CT, CT ABDOMEN PELVIS W CON, 02/27/2019, 15:30. [facility], MR, MR LUMBAR SPINE WITHOUT CONTRAST, 05/23/2020, 12:30. FINDINGS: Image quality: Excellent. Lung bases: Unremarkable. Heart: No significant findings. URINARY: Right Kidney and ureter: No stones or hydronephrosis. No ureteral stones or hydroureter. Left Kidney: There is a 4 mm stone at the left ureterovesical junction causing moderate hydronephrosis and mild hydroureter. Mild perinephric stranding. Bladder: Normal wall thickness. As noted, there is a left UVJ stone. ABDOMEN: Liver: Unremarkable. Gallbladder: Unremarkable. Biliary ducts: Unremarkable. Pancreas: Unremarkable. Spleen: Unremarkable. Adrenal Glands: Unremarkable. Stomach and Bowel: Stomach, small bowel loops, and colon are normal in caliber. Mild diverticulosis without diverticulitis Peritoneum: No abnormal intraperitoneal fluid. No free air. Ventral Wall: No hernia. Abdominal Nodes: No enlarged retroperitoneal or mesenteric lymph nodes. Vessels: Aorta and inferior vena cava are normal in size. Moderate atherosclerotic calcifications. PELVIS: Pelvic Organs: Unremarkable. Pelvic Nodes: Unremarkable. Miscellaneous: No inguinal hernias are seen. Bones: Mild levoscoliosis. Degenerative changes noted in lumbar spine IMPRESSION: 1. A 4 mm stone at the left ureterovesical junction causing left urinary obstruction. 2. Diverticulosis without diverticulitis. No significant discrepancy with the [facility] preliminary report. Dictated by: Shari Hayes M.D. on 11/18/2021 at 7:58 Approved by: Shari Hayes M.D. on 11/18/2021 at 8:04
[2021-11-18] MEDS: ONDANSETRON 4 MG/2 ML INJ IV (02:05)
--- NOTE | 2021-11-18 03:19 | PC.NURSE ---
denies any urinary s/s states does not have a hx of utis or any other urinary issues
== END 2021-11-18 03:28 | disposition home or self-care (01) ==
PROVIDERS: Emergency Provider Emergency Medicine; Family Provider Neuromusculoskeletal Medicine & OMM; PCP Family Medicine
DX: N13.2 Hydronephrosis with renal and ureteral calculous obstruction (principal); Z87.891 Personal history of nicotine dependence
CPT/HCPCS: 36415; 74176; 80053; 81003; 83690; 85025; 96361; 96374; 96375; 99284; J1885; J2405

== ENCOUNTER → 2021-12-18 10:11 | Outpatient (CLI) | payer MEDICARE, OTHER, SELFPAY | PROVIDERS: Family Provider Neuromusculoskeletal Medicine & OMM; PCP Family Medicine; Referring Provider Family Medicine; Visit Provider Family Medicine | DX: R10.9 Unspecified abdominal pain (principal); R19.5 Other fecal abnormalities | CPT/HCPCS: 87045; 87177; 87899 ==

== ENCOUNTER → 2022-02-26 14:18 | Outpatient (CLI) | payer MEDICARE, OTHER, SELFPAY ==
--- NOTE | 2022-02-26 | DI.MG.S_ITS ---
BILATERAL DIGITAL SCREENING MAMMOGRAM 3D/2D WITH CAD: 02/26/2022 CLINICAL: Routine screening. Family history of breast cancer. Comparison is made to exams dated: 02/19/2021 mammogram, 10/20/2018 mammogram - [facility], and 06/01/2010 mammogram - [facility]. The tissue of both breasts is heterogeneously dense. This may lower the sensitivity of mammography. Current study was also evaluated with a Computer Aided Detection (CAD) system. No significant masses, calcifications, or other findings are seen in either breast. There has been no significant interval change. IMPRESSION: NEGATIVE There is no mammographic evidence of malignancy. A 1 year screening mammogram is recommended. This exam was interpreted at Station ID: [id number]. NOTE: For mammograms, a report in lay terms will be sent to the patient. Approximately 15% of breast malignancies will not be visualized mammographically. In the management of a palpable breast mass, a negative mammogram must not discourage biopsy of a clinically suspicious lesion. Electronically Signed By: Luz Marina andujar/pancho:02/26/2022 17:17:16 letter sent: Normal Exam ACR BI-RADS Category 1: Negative 3341F
== END ==
PROVIDERS: Family Provider Neuromusculoskeletal Medicine & OMM; PCP Family Medicine; Referring Provider Family Medicine; Visit Provider Family Medicine
DX: Z12.31 Encounter for screening mammogram for malignant neoplasm of breast (principal); Z80.3 Family history of malignant neoplasm of breast
CPT/HCPCS: 77063; 77067

== ENCOUNTER → 2022-06-24 11:10 | Outpatient (CLI) | payer MEDICARE, OTHER, SELFPAY ==
[2022-06-24 12:49] LABS: Add Manual Diff / Slide Review NO; Basophils Absolute Auto 0 /uL (0-100); Basophils Percent Auto 0.5 % (0-2); Eosinophils Absolute Auto 0 /uL (0-450); Eosinophils Percent Auto 0.7 % (2-4); Hemoglobin 12.5 g/dL (12.0-16.0); Lymphocytes Absolute Auto 800 /uL (1100-4500); Lymphocytes Percent Auto 23.1 % (25-40); Mean Corpuscular HGB Conc 33.7 % (30-36); Mean Corpuscular Hemoglobin 31.8 PG (26-34); Mean Corpuscular Volume 94.4 fL (80-100); Monocytes Absolute Auto 300 /uL (0-900); Neutrophils Absolute Auto 2500 /uL (1500-7000); Neutrophils Percent Auto 68.7 % (50-75); Platelet Count 170 X10^3/uL (150-400); Red Blood Cell Count 3.93 X10^6/uL (4.0-5.2); Red Cell Distribution Width 12.7 % (11.6-14.8); White Blood Cell Count 3.6 X10^3/uL (4.5-11.0)
[2022-06-24 13:12] LABS: Alanine Aminotransferase 34 IU/L (<35); Albumin 4.2 g/dL (3.5-5.0); Albumin Globulin Ratio 1.4 (1.0-2.8); Alkaline Phosphatase 59 U/L (38-126); Aspartate Aminotransferase 38 IU/L (14-36); BUN Creatinine Ratio 31.1 (6-22); Bilirubin Total 0.8 mg/dL (0.2-1.3); Blood Urea Nitrogen 23 mg/dL (7-17); Calcium 9.1 mg/dL (8.4-10.2); Carbon Dioxide 26 mmol/L (22-32); Chloride 101 mmol/L (98-107); Cholesterol 307 mg/dL (140-199); Estimated Glomerular Filt Rate > 60 mL/min (>60); Globulin 3.1 g/dL (1.7-4.1); Glucose 77 mg/dL (80-110); HDL Cholesterol 103 mg/dL (40-60); HEMOLYSIS < 15 (0-50); LDL Cholesterol Calculated 194 mg/dL (<100); Potassium 3.8 mmol/L (3.4-5.1); Sodium 134 mmol/L (137-145); Total Protein 7.3 g/dL (6.3-8.2); Triglycerides 49 mg/dL (35-150)
[2022-06-24 13:22] LABS: Vitamin D 25 Hydroxy (D3) 28.1 ng/mL (30.0-100.0)
== END ==
PROVIDERS: Family Provider Neuromusculoskeletal Medicine & OMM; PCP Family Medicine; Referring Provider Family Medicine; Visit Provider Family Medicine
DX: E55.9 Vitamin D deficiency, unspecified (principal); R74.01 Elevation of levels of liver transaminase levels; E78.49 Other hyperlipidemia; R79.9 Abnormal finding of blood chemistry, unspecified
CPT/HCPCS: 36415; 80053; 80061; 82306; 85025

== ENCOUNTER → 2022-06-25 13:14 | Outpatient (CLI) | payer MEDICARE, OTHER, SELFPAY ==
--- NOTE | 2022-06-25 13:15 | DI.MRI.S_ITS ---
PROCEDURE: MR SHOULDER RT WO CON INDICATIONS: acute right shoulder pain TECHNIQUE: Noncontrast oblique coronal T2 fast spin echo with fat saturation, oblique sagittal T1 spin echo and T2 fast spin echo with fat saturation, axial T1 spin echo and T2 fast spin echo with fat saturation through the shoulder. COMPARISON: None. FINDINGS: Image quality: Diagnostic. Patient motion is noted. Rotator cuff: Tendinosis and low-grade bursal surface partial thickness tear involving distal supraspinatus at its insertion on the humeral head is seen extending to musculotendinous junction. Distal infraspinatus tendon is intact. Distal subscapularis tendinosis is seen. No full-thickness rotator cuff tendon rupture. No Sagittal images demonstrate no significant muscle atrophy. Bones and bursae: No bone marrow contusions or fractures. Mild acromioclavicular joint osteoarthritic changes are seen with joint space narrowing and small downward osteophyte formation depressing the musculotendinous junction of supraspinatus. Osteoarthritic changes also noted in glenohumeral joint with joint space narrowing, subchondral sclerosis and subcortical cyst formation in mid glenoid. Small to moderate amount of subacromial subdeltoid bursal fluid is present. Capsule and soft tissues: No definite labral tear is seen. The long head of the biceps tendon appears thickened. The rotator interval appears normal, without fibrosis. The coracohumeral ligament is normal in thickness. IMPRESSION: 1. Tendinosis and low-grade bursal surface partial thickness tear involving distal supraspinatus extending to musculotendinous junction. Distal subscapularis tendinosis. No full-thickness rotator cuff tendon rupture. 2. Mild acromioclavicular joint osteoarthritis and ghic-[id number] glenohumeral joint osteoarthritis. No fracture or dislocation. Small to moderate amount of subacromial subdeltoid bursal fluid. 3. No definite focal labral tear. 4. Suggestion of proximal intra-articular portion of long head of biceps tendinosis. Dictated by: Leonid Ashby M.D. on 06/25/2022 at 14:08 Approved by: Leonid Ashby M.D. on 06/25/2022 at 14:15
== END ==
PROVIDERS: Family Provider Neuromusculoskeletal Medicine & OMM; PCP Family Medicine; Referring Provider Family Medicine; Visit Provider Family Medicine
DX: M75.111 Incomplete rotator cuff tear or rupture of right shoulder, not specified as traumatic (principal); M19.011 Primary osteoarthritis, right shoulder; M25.511 Pain in right shoulder; G89.29 Other chronic pain
CPT/HCPCS: 73221

== ENCOUNTER → 2022-08-23 11:35 | Outpatient (CLI) | payer MEDICARE, OTHER, SELFPAY ==
[2022-08-23 13:14] LABS: Add Manual Diff / Slide Review NO; Basophils Absolute Auto 0 /uL (0-100); Basophils Percent Auto 0.6 % (0-2); Eosinophils Absolute Auto 0 /uL (0-450); Hematocrit 37.9 % (36-46); Hemoglobin 12.4 g/dL (12.0-16.0); Lymphocytes Absolute Auto 800 /uL (1100-4500); Lymphocytes Percent Auto 22.5 % (25-40); Mean Corpuscular HGB Conc 32.6 % (30-36); Mean Corpuscular Hemoglobin 30.9 PG (26-34); Mean Corpuscular Volume 94.6 fL (80-100); Monocytes Absolute Auto 200 /uL (0-900); Monocytes Percent Auto 5.5 % (3-14); Neutrophils Absolute Auto 2600 /uL (1500-7000); Neutrophils Percent Auto 70.4 % (50-75); Platelet Count 163 X10^3/uL (150-400); Red Cell Distribution Width 13.1 % (11.6-14.8); White Blood Cell Count 3.7 X10^3/uL (4.5-11.0)
[2022-08-23 13:28] LABS: HEMOLYSIS < 15 (0-50); Iron 84 ug/dL (37-170)
[2022-08-23 13:33] LABS: Alanine Aminotransferase 28 IU/L (<35); Albumin 4.2 g/dL (3.5-5.0); Albumin Globulin Ratio 1.5 (1.0-2.8); Alkaline Phosphatase 55 U/L (38-126); Aspartate Aminotransferase 37 IU/L (14-36); BUN Creatinine Ratio 35.1 (6-22); Bilirubin Total 0.7 mg/dL (0.2-1.3); Blood Urea Nitrogen 20 mg/dL (7-17); C-Reactive Protein Quant < 0.5 mg/dL (<1.0); Carbon Dioxide 26 mmol/L (22-32); Chloride 100 mmol/L (98-107); Estimated Glomerular Filt Rate > 60 mL/min (>60); Globulin 2.8 g/dL (1.7-4.1); Glucose 75 mg/dL (80-110); HEMOLYSIS < 15 (0-50); Potassium 3.4 mmol/L (3.4-5.1); Sodium 135 mmol/L (137-145)
[2022-08-23 13:39] LABS: Percent Iron Saturation 30 % (15-50); Total Iron Binding Capacity 277 ug/dL (265-497); Transferrin 242 mg/dL (206-381)
[2022-08-23 13:59] LABS: Thyroid Stimulating Hormone 1.57 uIU/mL (0.47-4.68)
[2022-08-23 14:03] LABS: Ferritin 340 ng/mL (11-264)
[2022-08-23 14:17] LABS: Vitamin B12 599 pg/mL (239-931)
== END ==
PROVIDERS: Family Provider Neuromusculoskeletal Medicine & OMM; PCP Family Medicine; Referring Provider Physician Assistant Medical; Visit Provider Physician Assistant Medical
DX: D64.9 Anemia, unspecified (principal); R53.81 Other malaise; R53.83 Other fatigue
CPT/HCPCS: 36415; 80053; 82607; 82728; 83540; 83550; 84443; 85025; 86140

== ENCOUNTER → 2022-09-07 16:26 | Outpatient (CLI) | payer MEDICARE, OTHER, SELFPAY ==
[2022-09-13 19:26] LABS: H.pylori IgG 0.23 (0.00-0.79)
== END ==
PROVIDERS: Family Provider Neuromusculoskeletal Medicine & OMM; PCP Family Medicine; Referring Provider Family Medicine; Visit Provider Family Medicine
DX: K21.9 Gastro-esophageal reflux disease without esophagitis (principal); K29.70 Gastritis, unspecified, without bleeding
CPT/HCPCS: 36415; 86677

== ENCOUNTER → 2022-10-07 17:24 | Outpatient (CLI) | payer MEDICARE, OTHER, SELFPAY ==
--- NOTE | 2022-10-07 17:28 | DI.RAD.S_ITS ---
PROCEDURE: XR CHEST 2V INDICATIONS: dyspnea TECHNIQUE: 2 views of the chest were acquired. COMPARISON: None. FINDINGS: Surgical changes and devices: None. Lungs and pleura: Lungs are clear. No pleural effusions or pneumothorax. Mediastinum: Mediastinal contours are normal. Heart size is normal. Bones and chest wall: No suspicious bony abnormalities. Soft tissues appear unremarkable. IMPRESSION: No acute cardiopulmonary abnormality. Dictated by: Demetri Soto M.D. on 10/08/2022 at 9:58 Approved by: Demetri Soto M.D. on 10/08/2022 at 9:59
[2022-10-07 18:00] LABS: Hematocrit 37.9 % (36-46); Hemoglobin 12.5 g/dL (12.0-16.0); Mean Corpuscular HGB Conc 32.9 % (30-36); Mean Corpuscular Volume 94.3 fL (80-100); Platelet Count 182 X10^3/uL (150-400); Red Blood Cell Count 4.02 X10^6/uL (4.0-5.2); Red Cell Distribution Width 13.4 % (11.6-14.8); White Blood Cell Count 4.6 X10^3/uL (4.5-11.0)
[2022-10-07 18:30] LABS: Alanine Aminotransferase 34 IU/L (<35); Albumin 4.4 g/dL (3.5-5.0); Albumin Globulin Ratio 1.4 (1.0-2.8); Alkaline Phosphatase 60 U/L (38-126); Aspartate Aminotransferase 40 IU/L (14-36); BUN Creatinine Ratio 44.1 (6-22); Bilirubin Total 0.4 mg/dL (0.2-1.3); Blood Urea Nitrogen 30 mg/dL (7-17); C-Reactive Protein Quant < 0.5 mg/dL (<1.0); Calcium 9.2 mg/dL (8.4-10.2); Carbon Dioxide 25 mmol/L (22-32); Chloride 100 mmol/L (98-107); Estimated Glomerular Filt Rate > 60 mL/min (>60); Globulin 3.2 g/dL (1.7-4.1); Glucose 91 mg/dL (80-110); HEMOLYSIS < 15 (0-50); Potassium 3.7 mmol/L (3.4-5.1); Sodium 135 mmol/L (137-145); Total Protein 7.6 g/dL (6.3-8.2)
[2022-10-07 18:43] LABS: Erythrocyte Sedimentation Rate 11 MM/HR (0-20)
[2022-10-07 18:58] LABS: TSH w/ Reflex to FT4 1.21 uIU/mL (0.47-4.68)
== END ==
PROVIDERS: Family Provider Neuromusculoskeletal Medicine & OMM; PCP Family Medicine; Referring Provider Internal Medicine; Visit Provider Internal Medicine
DX: M31.6 Other giant cell arteritis (principal); R06.00 Dyspnea, unspecified; G89.29 Other chronic pain; R53.81 Other malaise; R53.83 Other fatigue; R63.4 Abnormal weight loss; R68.84 Jaw pain
CPT/HCPCS: 36415; 71046; 80053; 84443; 85027; 85651; 86140

== ENCOUNTER → 2022-10-15 10:48 | Outpatient (CLI) | payer MEDICARE, OTHER, SELFPAY ==
--- NOTE | 2022-10-15 10:50 | DI.CT.S_ITS ---
PROCEDURE: CT ABDOMEN PELVIS W CON INDICATIONS: weight loss,abd pain TECHNIQUE: After the administration of oral and intravenous contrast, axial sections were acquired from the lung bases to the pubic symphysis. Coronal and sagittal reformats were performed. For radiation dose reduction, the following was used: automated exposure control, adjustment of mA and/or kV according to patient size. COMPARISON:[facility], CT, CT ABDOMEN PELVIS W CON, 02/27/2019, 15:30. FINDINGS: Image quality: Excellent. Lung bases: Unremarkable. Heart: No significant findings. ABDOMEN: Liver: Unremarkable. Gallbladder: Unremarkable. Biliary ducts: Unremarkable. Pancreas: Unremarkable. Spleen: Unremarkable. Adrenal Glands: Unremarkable. Kidneys and Ureters: Unremarkable. Stomach and Bowel: Stomach, small bowel loops, and colon are unremarkable except for mild to moderate colonic obstipation. Peritoneum: No abnormal intraperitoneal fluid. No free air. Ventral Wall: No hernia. Abdominal Nodes: No retroperitoneal or mesenteric adenopathy by size criteria. Vessels: Aorta and inferior vena cava are normal in size. PELVIS: Pelvic Organs: Unremarkable. Bladder: Unremarkable. Pelvic Nodes: No enlarged lymph nodes. Miscellaneous: No inguinal hernias are seen. Bones: Unremarkable. IMPRESSION: [id number] colonic obstipation. No evidence for solid or hollow organ infection or neoplasm. Source of unexplained weight loss is not found. Dictated by: Oleg Narayan M.D. on 10/15/2022 at 13:36 Approved by: Oleg Narayan M.D. on 10/15/2022 at 13:42
== END ==
PROVIDERS: Family Provider Neuromusculoskeletal Medicine & OMM; PCP Internal Medicine; Referring Provider Internal Medicine; Visit Provider Internal Medicine
DX: K59.00 Constipation, unspecified (principal); R63.4 Abnormal weight loss; K29.50 Unspecified chronic gastritis without bleeding; R10.9 Unspecified abdominal pain; R53.81 Other malaise; R53.83 Other fatigue; M31.6 Other giant cell arteritis; G89.29 Other chronic pain
CPT/HCPCS: 74177

== ENCOUNTER → 2022-11-02 14:35 | Outpatient (CLI) | payer MEDICARE, OTHER, SELFPAY ==
--- NOTE | 2022-11-02 14:21 | DI.DEXA.S_ITS ---
Indication: osteopenia; Referring Provider: GLENN DA SILVA Study: Bone densitometry was performed. Exam Date: November 02, 2022 Accession number: [id number] Bone Density: Region BMD T-score Z-score Classification AP Spine(L1-L4) 0.720 -3.0 -0.9 Osteoporosis Femoral Neck (Left) 0.561 -2.6 -0.8 Osteoporosis Total Hip (Left) 0.619 -2.6 -1.2 Osteoporosis Femoral Neck (Right) 0.582 -2.4 -0.7 Osteopenia Total Hip (Right) 0.613 -2.7 -1.2 Osteoporosis Total Hip Mean 0.616 -2.7 -1.2 Osteoporosis World Health Organization criteria for BMD impression classify patients as: Normal (T-score at or above -1.0), Osteopenia (T-score between -1.0 and -2.5), or Osteoporosis (T-score at or below -2.5). 10-year Fracture Risk: FRAX not reported because: Some T-score for Spine Total or Hip Total or Femoral Neck at or below -2.5 Previous Exams: -- Region Exam Age BMD T-score BMD Change BMD Change Date g/cm2 vs Baseline vs Previous -- AP Spine (L1-L4) 11/02/2022 67 0.720 -3.0 -0.071 (-9.0%)# -0.071 (-9.0%)# 10/20/2018 63 0.791 -2.3 -- *Denotes significance at 95% confidence level, LSC for AP Spine = 0.022 g/cm2 # Denotes dissimilar scan types or analysis methods Impression: The patient has osteoporosis, based on the Total Spine T-score. No significant bone loss was observed. Discussion: INCREASED RISK OF FRACTURE. BONE DENSITY IS UNDESIRABLY LOW AT ONE OR MORE SKELETAL SITES, CONSISTENT WITH POSTMENOPAUSAL OSTEOPOROSIS. This patient's lowest T-score meets the World Health Organization's (WHO) criteria for osteoporosis at one or more sites (T-score -2.5 or below). In untreated patients, the risk of osteoporotic fracture increases approximately two-fold for each 1.0 SD decrease in T-score. Low bone density is not the only risk factor for fracture; also consider factors such as patient's age, frailty or poor health, risk of falling, risk of injury, previous osteoporotic fracture, family history of osteoporosis, cigarette smoking, low body weight, etc. Not everyone with low bone mineral density has osteoporosis; osteomalacia and other metabolic bone disorders should also be considered. Patients who have osteoporosis should be evaluated for specific diseases and conditions (secondary causes) that may cause or contribute to bone loss. The [place] [employer] Endocrinologists (AACE) and National Osteoporosis Foundation (NOF) recommend pharmacologic intervention for all postmenopausal women whose T-score is in this range. The patient should follow a healthful lifestyle (good nutrition with adequate calcium and vitamin D, and appropriate weight-bearing exercise). Follow-Up: Consider a repeat BMD and Vertebral Fracture Assessment (VFA) exam in 2 years or sooner if medically necessary, to reassess this patient's status. Reported by: Kay Hayes M.D. on 11/02/2022 3:12:00 PM.
== END ==
PROVIDERS: Family Provider Neuromusculoskeletal Medicine & OMM; PCP Internal Medicine; Referring Provider Internal Medicine; Visit Provider Internal Medicine
DX: Z78.0 Asymptomatic menopausal state (principal); M81.0 Age-related osteoporosis without current pathological fracture; Z87.311 Personal history of (healed) other pathological fracture
CPT/HCPCS: 77080

== ENCOUNTER → 2022-12-09 16:06 | Outpatient (CLI) | payer MEDICARE, OTHER, SELFPAY ==
[2022-12-09 17:39] LABS: Amylase 139 U/L (30-110); Gamma Glutamyl Transpeptidase 13 U/L (12-43)
[2022-12-09 18:09] LABS: Cortisol Random 5.97 ug/dL
[2022-12-09 18:46] LABS: Folate 11.8 ng/mL (2.76-20.0); Vitamin B12 491 pg/mL (239-931)
[2022-12-10 05:14] LABS: Immunoglobulin A 141 mg/dL (87-352); Immunoglobulin G, Quantitative 930 mg/dL (586-1602); Immunoglobulin M, Quantitative 93 mg/dL (26-217)
[2022-12-10 07:31] LABS: Thyroid Peroxidase Antibodies <9 IU/mL (0-34)
[2022-12-11 08:07] LABS: EBV Nuclear Antigen Ab IgG >600.0 U/mL (0.0-17.9)
[2022-12-11 19:05] LABS: Anti Thyroglobulin Antibody <1.0 IU/mL (0.0-0.9)
[2022-12-13 22:18] LABS: 18 kD IgG Band Absent (.); 23 kD IgG Band Absent (.); 28 kD IgG Band Absent (.); 30 kD IgG Band Absent (.); 39 kD IgG Band Absent (.); 41 kD IgG Bands Absent (.); 45 kD IgG Band Absent (.); 58 kD IgG Band Present (.); 66 kD IgG Band Absent (.); IgG P93 AB Absent (.); IgM P23 AB Absent (.); IgM P39 AB Absent (.); IgM P41 AB Absent (.); Lyme IgG Line Blot Interpretat Negative (.); Lyme IgM Line Blot Interpretat Negative (.)
[2022-12-29 09:39] LABS: Epstein-Barr Anti-Diffuse NOT PERFORMED
[2022-12-29 09:40] LABS: Dehydroepiandrosterone (DHEA) 56; Epstein-Barr Anti R/D NOT PERFORMED
== END ==
PROVIDERS: Family Provider Neuromusculoskeletal Medicine & OMM; PCP Internal Medicine; Referring Provider Nurse Practitioner Family; Visit Provider Nurse Practitioner Family
DX: R74.01 Elevation of levels of liver transaminase levels (principal); E03.9 Hypothyroidism, unspecified; Z86.39 Personal history of other endocrine, nutritional and metabolic disease; R53.83 Other fatigue; Z86.19 Personal history of other infectious and parasitic diseases; B94.8 Sequelae of other specified infectious and parasitic diseases; R12 Heartburn; E46 Unspecified protein-calorie malnutrition; R63.4 Abnormal weight loss
CPT/HCPCS: 36415; 82150; 82533; 82607; 82627; 82746; 82784; 82977; 86376; 86617; 86663; 86664; 86800

== ENCOUNTER → 2023-03-18 11:46 | Outpatient (CLI) | payer MEDICARE, OTHER, SELFPAY ==
[2023-03-18 13:02] LABS: Add Manual Diff / Slide Review NO; Basophils Absolute Auto 0 /uL (0-100); Basophils Percent Auto 0.5 % (0-2); Eosinophils Absolute Auto 0 /uL (0-450); Eosinophils Percent Auto 0.7 % (2-4); Hematocrit 36.4 % (36-46); Hemoglobin 12.2 g/dL (12.0-16.0); Lymphocytes Absolute Auto 700 /uL (1100-4500); Mean Corpuscular HGB Conc 33.5 % (30-36); Mean Corpuscular Hemoglobin 31.7 PG (26-34); Mean Corpuscular Volume 94.6 fL (80-100); Monocytes Absolute Auto 200 /uL (0-900); Monocytes Percent Auto 5.7 % (3-14); Neutrophils Absolute Auto 3000 /uL (1500-7000); Neutrophils Percent Auto 75.1 % (50-75); Platelet Count 165 X10^3/uL (150-400); Red Blood Cell Count 3.85 X10^6/uL (4.0-5.2); Red Cell Distribution Width 13.1 % (11.6-14.8)
[2023-03-18 13:28] LABS: Alanine Aminotransferase 28 IU/L (<35); Albumin Globulin Ratio 1.6 (1.0-2.8); Alkaline Phosphatase 50 U/L (38-126); Amylase 68 U/L (30-110); Aspartate Aminotransferase 38 IU/L (14-36); BUN Creatinine Ratio 31.6 (6-22); Bilirubin Total 0.3 mg/dL (0.2-1.3); Blood Urea Nitrogen 24 mg/dL (7-17); Calcium 8.7 mg/dL (8.4-10.2); Carbon Dioxide 25 mmol/L (22-32); Chloride 99 mmol/L (98-107); Estimated Glomerular Filt Rate > 60 mL/min (>60); Globulin 2.5 g/dL (1.7-4.1); Glucose 94 mg/dL (80-110); HEMOLYSIS < 15 (0-50); Lipase 111 U/L (23-300); Sodium 133 mmol/L (137-145); Total Protein 6.5 g/dL (6.3-8.2)
[2023-03-18 13:45] LABS: Free T3, Triiodothyronine Free 3.24 pg/mL (2.77-5.27); T4 Total Thyroxine 7.65 ug/dL (5.5-11.0)
[2023-03-18 13:58] LABS: Thyroid Stimulating Hormone 0.867 uIU/mL (0.47-4.68)
[2023-04-04 09:39] LABS: Vitamin B1 88.7
== END ==
PROVIDERS: Family Provider Neuromusculoskeletal Medicine & OMM; PCP Internal Medicine; Referring Provider Nurse Practitioner Family; Visit Provider Nurse Practitioner Family
DX: R53.83 Other fatigue (principal); B94.8 Sequelae of other specified infectious and parasitic diseases; E03.9 Hypothyroidism, unspecified; Z86.39 Personal history of other endocrine, nutritional and metabolic disease; R63.0 Anorexia; E46 Unspecified protein-calorie malnutrition; R74.8 Abnormal levels of other serum enzymes
CPT/HCPCS: 36415; 80053; 82150; 83690; 84425; 84436; 84443; 84481; 85025; 86665

== ENCOUNTER → 2023-03-30 14:23 | Outpatient (CLI) | payer MEDICARE, OTHER, SELFPAY ==
--- NOTE | 2023-03-30 | DI.MG.S_ITS ---
BILATERAL DIGITAL SCREENING MAMMOGRAM 3D/2D WITH CAD: 03/30/2023 CLINICAL: Routine screening. Family history of breast cancer. Comparison is made to exams dated: 02/26/2022 mammogram, 02/19/2021 mammogram, and 10/20/2018 mammogram - [facility]. There are scattered areas of fibroglandular density in both breasts (category b / 25%-50% glandular tissue). Current study was also evaluated with a Computer Aided Detection (CAD) system. No significant masses, calcifications, or other findings are seen in either breast. There has been no significant interval change. IMPRESSION: NEGATIVE There is no mammographic evidence of malignancy. A 1 year screening mammogram is recommended. Based on the Tyrer Cuzick model (a risk assessment model) the patient's lifetime risk is 10.5% and her 10 year risk is 6.2%. According to the ACR, ACS, and NCCN guidelines, an annual breast MRI exam along with mammogram is recommended if the patient's lifetime risk is 20% or greater. This exam was interpreted at Station ID: [id number]. NOTE: For mammograms, a report in lay terms will be sent to the patient. Approximately 15% of breast malignancies will not be visualized mammographically. In the management of a palpable breast mass, a negative mammogram must not discourage biopsy of a clinically suspicious lesion. Electronically Signed By: Luz Marina andujar/pancho:03/30/2023 15:17:06 letter sent: Normal Exam ACR BI-RADS Category 1: Negative 3341F
== END ==
PROVIDERS: Family Provider Neuromusculoskeletal Medicine & OMM; PCP Internal Medicine; Referring Provider Internal Medicine; Visit Provider Internal Medicine
DX: Z12.31 Encounter for screening mammogram for malignant neoplasm of breast (principal); Z80.3 Family history of malignant neoplasm of breast
CPT/HCPCS: 77063; 77067

== ENCOUNTER → 2023-04-01 14:58 | Outpatient (CLI) | payer MEDICARE, OTHER, SELFPAY ==
--- NOTE | 2023-04-01 15:01 | DI.RAD.S_ITS ---
PROCEDURE: XR SHOULDER RT MIN 2V INDICATIONS: RIGHT SHOULER PAIN TECHNIQUE: 3 views of the shoulder were acquired. COMPARISON: None. FINDINGS: Bones: No fractures or dislocations. No suspicious bony lesions. Visualized ribs appear intact. Soft tissues: No suspicious soft tissue calcifications. IMPRESSION: Unremarkable right shoulder radiographs Approved by: Jose Altamirano M.D. on 04/01/2023 at 15:20
--- NOTE | 2023-04-01 15:01 | DI.RAD.S_ITS ---
PROCEDURE: XR HIP W PEL IF DONE ANDREA MIN 4V INDICATIONS: RIGHT HIP PAIN TECHNIQUE: AP pelvis with lateral view(s) of the bilateral hip(s). COMPARISON: [facility], , XR HIP W PEL IF DONE RT 2V, 01/30/2019, 13:04. FINDINGS: Bones: [id number] bilateral hip joint osteoarthritic changes are seen with superior joint space narrowing and subchondral sclerosis slightly worse on the right side. No fractures or dislocations. No evidence of avascular necrosis of femoral head. Pelvic ring appears intact. No suspicious bony lesions. Soft tissues: The visualized bowel gas pattern is normal. No suspicious soft tissue calcifications. IMPRESSION: [id number] right worse than left bilateral hip joint osteoarthritis. No hip fracture or dislocation. No evidence of avascular necrosis. Dictated by: Leonid Ashby M.D. on 04/01/2023 at 15:58 Approved by: Leonid Ashby M.D. on 04/01/2023 at 15:58
--- NOTE | 2023-04-01 15:01 | DI.RAD.S_ITS ---
PROCEDURE: XR LUMBAR SPINE MIN 4V INDICATIONS: BACK AND RIGHT HIP PAIN TECHNIQUE: 5 views of the lumbar spine were acquired, including bilateral oblique views.. COMPARISON: [facility], CT, CT ABDOMEN PELVIS W CON, 10/15/2022, 11:50. FINDINGS: Bones: 5 nonrib-bearing vertebrae are present. There is moderate levoscoliosis of lumbar spine with apex at L2-3 level 9 mm anterolisthesis of L4 on L5 is also seen. 3 mm retrolisthesis of L2 on L3 is also seen. Degenerative endplate changes are noted throughout lumbar spine more notably at L3-4 through L5-S1 levels. No vertebral body compression fractures. No suspicious bony lesions. Soft tissues: Overlying bowel gas pattern is normal. No suspicious soft tissue calcifications. Oblique images: No pars defects. IMPRESSION: Scoliosis and likely degenerative spondylolisthesis as above. No acute compression fracture. Degenerative disc disease throughout lumbar spine. No gross pars defects. Dictated by: Leonid Ashby M.D. on 04/01/2023 at 15:51 Approved by: Leonid Ashby M.D. on 04/01/2023 at 15:53
== END ==
PROVIDERS: Family Provider Neuromusculoskeletal Medicine & OMM; PCP Internal Medicine; Referring Provider Physical Medicine & Rehabilitation; Visit Provider Physical Medicine & Rehabilitation
DX: M51.36 Other intervertebral disc degeneration, lumbar region (principal); M51.37 Other intervertebral disc degeneration, lumbosacral region; M41.9 Scoliosis, unspecified; M16.0 Bilateral primary osteoarthritis of hip; M25.551 Pain in right hip; M25.511 Pain in right shoulder; M54.50 Low back pain, unspecified
CPT/HCPCS: 72110; 73030; 73522

== ENCOUNTER → 2023-04-22 16:03 | Outpatient (CLI) | payer MEDICARE, OTHER, SELFPAY ==
[2023-04-22 17:10] LABS: Add Manual Diff / Slide Review NO; Basophils Absolute Auto 0 /uL (0-100); Basophils Percent Auto 0.4 % (0-2); Eosinophils Absolute Auto 0 /uL (0-450); Eosinophils Percent Auto 0.4 % (2-4); Hematocrit 34.3 % (36-46); Hemoglobin 11.6 g/dL (12.0-16.0); Lymphocytes Absolute Auto 900 /uL (1100-4500); Lymphocytes Percent Auto 16.2 % (25-40); Mean Corpuscular HGB Conc 33.9 % (30-36); Mean Corpuscular Hemoglobin 32.2 PG (26-34); Monocytes Absolute Auto 400 /uL (0-900); Monocytes Percent Auto 6.7 % (3-14); Neutrophils Absolute Auto 4000 /uL (1500-7000); Neutrophils Percent Auto 76.3 % (50-75); Platelet Count 183 X10^3/uL (150-400); Red Blood Cell Count 3.61 X10^6/uL (4.0-5.2); Red Cell Distribution Width 12.9 % (11.6-14.8); White Blood Cell Count 5.3 X10^3/uL (4.5-11.0)
[2023-04-22 17:26] LABS: Alanine Aminotransferase 27 IU/L (<35); Albumin Globulin Ratio 1.5 (1.0-2.8); Alkaline Phosphatase 45 U/L (38-126); Aspartate Aminotransferase 37 IU/L (14-36); Bilirubin Total 0.4 mg/dL (0.2-1.3); Blood Urea Nitrogen 29 mg/dL (7-17); Calcium 8.7 mg/dL (8.4-10.2); Carbon Dioxide 23 mmol/L (22-32); Chloride 100 mmol/L (98-107); Estimated Glomerular Filt Rate > 60 mL/min (>60); Globulin 2.6 g/dL (1.7-4.1); Glucose 93 mg/dL (80-110); HEMOLYSIS < 15 (0-50); Potassium 3.8 mmol/L (3.4-5.1); Sodium 131 mmol/L (137-145); Total Protein 6.6 g/dL (6.3-8.2)
== END ==
PROVIDERS: Family Provider Neuromusculoskeletal Medicine & OMM; PCP Internal Medicine; Referring Provider Nurse Practitioner Family; Visit Provider Nurse Practitioner Family
DX: D64.9 Anemia, unspecified (principal); E87.1 Hypo-osmolality and hyponatremia; R74.8 Abnormal levels of other serum enzymes; D72.810 Lymphocytopenia
CPT/HCPCS: 36415; 80053; 85025